=== PATIENT | female | born 1970 ===

== ENCOUNTER 2016-08-19 08:24 | Day surgery (SDC) | payer MEDICAID ==
[2016-08-17 09:23] VITALS: BMI 44.6
[2016-08-19] MEDS ORDERED: Bupivacaine HCl 0.25% PF (10 ml) Inj ONE (11:19)
[2016-08-19] MEDS ORDERED: ceFAZolin IV 2 gm in Dextrose 0 GM/0 ML BAG IVPB ONE (11:20)
[2016-08-19] MEDS ORDERED: Lidocaine 1% Inj (20ml) ONE (11:20)
[2016-08-19] MEDS ORDERED: Midazolam 2 MG/2 ML VIAL ONE (11:40)
[2016-08-19] MEDS ORDERED: Propofol 10 mg/ml Inj (20 ML) ONE (11:41)
[2016-08-19] MEDS ORDERED: ceFAZolin IV 1 gm in Dextrose 1 GM/50 ML BAG IVPB ONE (11:43)
[2016-08-19] MEDS ORDERED: Lactated Ringer's 1,000 ML IV ONE ×2 (11:45→12:50)
[2016-08-19] MEDS ORDERED: ePHEDrine 50 mg/ml Inj ONE (12:27)
[2016-08-19] MEDS ORDERED: Oxycodone/Acetaminophen 5/325 mg Tab PO PRN (12:55)
[2016-08-19] MEDS ORDERED: HYDROmorphone 0.5 mg/0.5 ml ISec IVP PRN (12:57)
[2016-08-19] MEDS ORDERED: Lactated Ringer's 1,000 ML IV SCH (13:00)
--- NOTE | 2016-08-19 14:29 | OP ---
PROCEDURE DATE: 08/19/2016 PREOPERATIVE DIAGNOSIS: Inflammatory mass of the right thigh and right leg. POSTOPERATIVE DIAGNOSIS: Inflammatory mass of the right thigh and right leg. PROCEDURE PERFORMED: Wide and deep excision of inflammatory mass of the right thigh and right leg. SURGEON: Laci Dinero MD ANESTHESIA: General. ESTIMATED BLOOD LOSS: 35 mL. POSTOPERATIVE CONDITION: Stable. INDICATIONS FOR SURGERY: This is a 46-year-old female with 2 inflammatory masses medially on the leg , one measuring 5 and one measuring 6 cm. One was on the thigh and one was on the leg near the knee. She now will undergo wide and deep excision. PROCEDURE: The patient taken to the operating room. General anesthesia administered and the right l eg was prepped and draped. Attention was first turned to the thigh mass. An elliptical incision was made surrounding the mass. It was completely dissected free deep into the fascial layer and removed. Bleeding was controlled using the Bovie. A larger blood vessel was repaired. Wound was irrigated with saline. Generous tissue flaps were raised using the Bovie and a greater than 30 square cm adjac ent tissue transfer closure was performed with multiple layers of heavy Monocryl, subcuticular Monocr yl, and glue. The above was repeated on the mass on the leg. The patient tolerated the procedure we ll, returned to recovery room in stable condition. Laci Dinero MD cc: [id number] TT: 08/19/2016 14:29:43 travon
[2016-08-19 16:08] VITALS: BP 132/84; PULSE 76; RESP 20; TEMP 97.8; O2SAT 98
--- NOTE | 2016-08-20 23:04 | CARD ---
APPROVED REPORT EKG Measurement Heart [id number] <Conclusion> Normal sinus rhythm Normal ECG
== END 2016-08-19 15:50 | disposition home or self-care (01) ==
LOC: C.SDS 08:24
PROVIDERS: ATTEND Surgery
DX: R22.41 Localized swelling, mass and lump, right lower limb (principal)
CPT/HCPCS: 11406; 88307; 93005; 97116; 97161; G8978; G8979; G8980; J0690; J2250; J2704; J3010; J7120

== ENCOUNTER 2016-08-28 11:43 | Inpatient (IN) | payer MEDICAID ==
[2016-08-28 11:44] VITALS: BMI 44.6
[2016-08-28] MEDS ORDERED: Cefepime 1 GM in Sodium Chloride 0.9% 50 ML IVPB STA (12:11)
--- NOTE | 2016-08-28 12:23 | RAD ---
PROCEDURE: CHEST RADIOGRAPH, 1 VIEW HISTORY: PREOP COMPARISON: None available. FINDINGS: LUNGS: Clear. PLEURA: No pneumothorax or pleural fluid seen. CARDIOVASCULAR: Normal. OSSEOUS STRUCTURES: Mild degenerative changes both acromioclavicular joints. VISUALIZED UPPER ABDOMEN: Normal. OTHER FINDINGS: None. IMPRESSION: No acute cardiopulmonary disease.
[2016-08-28 12:29] LABS: BASO % 0.6 % (0.0-2.0); EOS # 0.2 K/uL (0.0-0.7); HEMATOCRIT 40.7 % (34.0-47.0); LYMPH # 1.2 K/uL (1.0-4.3); LYMPH % 17.5 % (20.0-40.0); MEAN CELL VOLUME 87.4 fL (81.0-99.0); MEAN CORPUSCULAR HGB CONC 33.2 g/dL (33.0-37.0); MEAN PLATELET VOLUME 7.6 fL (7.2-11.7); MONO # 0.8 K/uL (0.0-0.8); MONO % 12.4 % (0.0-10.0); RED CELL DISTRIBUTION WIDTH 14.1 % (11.5-14.5); WHITE BLOOD COUNT 6.8 K/uL (4.8-10.8)
[2016-08-28 12:37] LABS: CHLORIDE 101 mmol/L (98-107); SODIUM 138 mmol/L (132-148)
[2016-08-28 12:38] LABS: POTASSIUM 3.9 mmol/L (3.6-5.2)
[2016-08-28 12:40] LABS: ALB/GLOB RATIO 1.1 (1.0-2.1); ALKALINE PHOSPHATASE 83 U/L (38-126); AST/SGOT 17 U/L (14-36); BILIRUBIN,TOTAL 0.8 mg/dL (0.2-1.3); BLOOD UREA NITROGEN 16 mg/dL (7-17); CARBON DIOXIDE 26 mmol/L (22-30); GFR AFRICAN-AMERICAN > 60; GLUCOSE,RANDOM 74 mg/dL (65-105); TOTAL PROTEIN 8.2 g/dL (6.3-8.3)
[2016-08-28 12:41] LABS: ALT/SGPT 23 U/L (9-52); CALCIUM 9.6 mg/dl (8.6-10.4)
--- NOTE | 2016-08-28 12:50 | C.PDOC ---
History Of Present Illness 46-year-old female presents to the emergency department with complaints of redness and pain to right lower leg. Patient is s/p varicose vein removal one week ago by Dr. Dinero. Since then, patient has been experiencing increasing redness and pain with "whitish fluid" coming from the wound. Patient called Dr. Dinero, who instructed her to come to the ED for evaluation. Pt is not currently on any PO antibiotics. She denies falls/injuries, chest pain, shortness of breath, fever. Time Seen by Provider: 08/28/16 11:50 Chief Complaint (Nursing): Abnormal Skin Integrity History Per: Patient History/Exam Limitations: no limitations Onset/Duration Of Symptoms: Days Current Symptoms Are (Timing): Still Present Quality Of Symptoms: Painful, Swollen, Draining Severity: Moderate Past Medical History Reviewed: Historical Data, Nursing Documentation, Vital Signs Vital Signs: Last Vital Signs Temp 98.2 F 09/01/16 15:00 Pulse 77 09/01/16 15:15 Resp 18 09/01/16 15:15 BP 121/68 09/01/16 15:15 Pulse Ox 95 09/01/16 15:15 - Medical History PMH: HTN, Peripheral Edema Surgical History: Appendectomy, Tonsillectomy Other Surgeries: varicose vein surgery - [facility] Procedures DRAINAGE OF R LOW LEG SUBCU/FASCIA, OPEN APPROACH (08/28/16) EXCISION OF R LOW LEG SUBCU/FASCIA, OPEN APPROACH (08/28/16) NAIL REMOVAL (10/15/14) TRANSFER R LOW LEG SUBCU/FASCIA W SKIN, SUBCU, OPEN (08/28/16) Family History: States: No Known Family Hx - Social History Hx Alcohol Use: No Hx Substance Use: No Review Of Systems Except As Marked, All Systems Reviewed And Found Negative. Constitutional: Negative for: Fever, Chills Cardiovascular: Negative for: Chest Pain Respiratory: Negative for: Shortness of Breath Gastrointestinal: Negative for: Nausea, Vomiting, Abdominal Pain, Diarrhea Musculoskeletal: Positive for: Leg Pain Skin: Negative for: Rash Neurological: Negative for: Weakness, Numbness, Headache, Dizziness Physical Exam - Physical Exam Appears: Well, Non-toxic, Other (Mild painful distress ) Skin: Warm, Dry, No Rash, Other (Right medial calf:approx 8cm area of erythema, tenderness and warmth to the proximal surgical wound, (+) small amount clear discharge.) Eye(s): bilateral: Normal Inspection Oral Mucosa: Moist Cardiovascular: Rhythm Regular Respiratory: Normal Breath Sounds, No Rales, No Rhonchi, No Wheezing Gastrointestinal/Abdominal: Normal Exam, Bowel Sounds, Soft, No Tenderness Extremity: Normal ROM, No Pedal Edema, No Deformity Pulses: Left Dorsalis Pedis: Normal, Right Dorsalis Pedis: Normal Neurological/Psych: Oriented x3, Normal Sensation ED Course And Treatment - Laboratory Results Result Diagrams: 09/01/16 07:13 09/01/16 07:13 ECG: Interpreted By Me, Viewed By Me (NSR 86 bpm, normal axis, no acute ST/T wave changes) ECG Interpretation: Normal O2 Sat by Pulse Oximetry: 95 (RA) Pulse Ox Interpretation: Normal - Other Rad CXR X-Ray: Viewed By Me, Read By Radiologist Interpretation: Accession No. : [id number]. Patient Name / ID : EWELINA CHIN / [id number]. Exam Date : 08/28/2016 12:06:03 ( Approved ). Study Comment : Sex / Age : F / 46Y. Creator : Laci Gillis MD. Dictator : Laci Gillis MD. Brim And Crown Presser : Hand Surgeon : Laci Gillis MD. Approver2 : Report Date : 08/28/2016 12:22:13. My Comment : . PROCEDURE: CHEST RADIOGRAPH, 1 VIEW. HISTORY: PREOP. COMPARISON: None available. FINDINGS: LUNGS: Clear. PLEURA: No pneumothorax or pleural fluid seen. CARDIOVASCULAR: Normal. OSSEOUS STRUCTURES: Mild degenerative changes both acromioclavicular joints. VISUALIZED UPPER ABDOMEN: Normal. OTHER FINDINGS: None. IMPRESSION: No acute cardiopulmonary disease. Progress Note: Bloodwork, EKG and CXR ordered and reviewed. Patient given dose of IV Vanomycin, IV Cefepime. Patient to be taken to OR by Dr. Dinero for I& D of abcess/wound later today. - Physician Consult Information Physician Contacted: Laci Dinero Outcome Of Conversation: Spoke with Dr. Dinero, patient to be admitted under Dr. Brooks's service for leg cellulitis/abscess with Dr. Arroyo for ID. Dr. Brooks spoken with and agrees, emergency medical tech notified. Patient is NPO for OR later (approx 5pm). Disposition - Disposition Disposition: HOSPITALIZED Disposition Time: 14:08 Condition: STABLE - Clinical Impression Clinical Impression: Cellulitis of right leg, or - Scribe Statement The provider has reviewed the documentation as recorded by the Scribe Gopi Fritz All medical record entries made by the Scribe were at my direction and personally dictated by me. I have reviewed the chart and agree that the record accurately reflects my personal performance of the history, physical exam, medical decision making, and the department course for this patient. I have also personally directed, reviewed, and agree with the discharge instructions and disposition. Decision To Admit - Pt Status Changed To: Hospital Disposition Of: Inpatient - Admit Certification Admit to Inpatient:: After my assessment, the patient will require hospitalization for at least two midnights. This is because of the severity of symptoms shown, intensity of services needed, and/or the medical risk in this patient being treated as an outpatient. - InPatient: Physician Admission Certification: I certify that this patient requires 2 or more midnights of care for the following reason:: see notes - . Bed Request Type: Regular Admitting Physician: Juanpablo Brooks Jr. Patient Diagnosis: Cellulitis of right leg
[2016-08-28] MEDS ORDERED: Cefepime IV 1 gm in Dextrose 1 GM/50 ML BAG IVPB ONE (13:00)
[2016-08-28] MEDS ORDERED: Dextrose 5%/0.9% NS 1,000 ML IV STA (13:35)
--- NOTE | 2016-08-28 14:20 | CP.PCM.HP ---
History of Present Illness - History of Present Illness History of Present Illness: Medicine Note for Dr. Brooks, CC: right leg pain HPI: 46F with presents to the ED S/P Excision of Varicose Vein of Right Leg POD #9 (08/19/16) with right leg pain and swelling. She stated she noticed redness a few days ago and it was leaking white fluid from the surgical site for the past two days. She also states having increased swelling as well as decreased sensation around site. Last night she reported having increasing pain and throbbing around the site. She did not come to the ED because she had an appointment scheduled with with Dr. Dinero today at his office, during which he told her to come to the ED. Admitted to having difficulty ambulating on the leg, even with the assistance of the crutches. Plan for OR today at 5pm. Denied fever, chills, headache, chest pain, SOB, abdominal pain, n/v/d/c, urinary symptoms. PMHx: Denied PSHx: appendectomy, tonsillectomy, varicose vein removal left leg and right leg , left foot surgery Meds: Denied All: Contrast SHx: Admits to socially drinking alcohol, denied any tobacco or illicit drug use FHx: DM, CAD Present on Admission - Present on Admission Any Indicators Present on Admission: No Past Patient History - Infectious Disease Hx of Infectious Diseases: None - Past Medical History & Family History Past Medical History?: Yes - Past Social History Smoking Status: Never Smoked - CARDIAC Hx Hypertension: Yes Hx Peripheral Edema: Yes - PULMONARY Hx Respiratory Disorders: Yes Hx Respiratory Tract Infection: Yes (APR 2016) - NEUROLOGICAL Hx Neurological Disorder: No - HEENT Hx HEENT Problems: No - RENAL Hx Chronic Kidney Disease: No - ENDOCRINE/METABOLIC Hx Endocrine Disorders: No - HEMATOLOGICAL/ONCOLOGICAL Hx Blood Disorders: No - INTEGUMENTARY Hx Dermatological Problems: Yes Other/Comment: varicose vein surgery. Redness right knee and leg - MUSCULOSKELETAL/RHEUMATOLOGICAL Hx Musculoskeletal Disorders: No - GASTROINTESTINAL Hx Gastrointestinal Disorders: No - GENITOURINARY/GYNECOLOGICAL Hx Genitourinary Disorders: Yes (PELVIC PAIN) - PSYCHIATRIC Hx Substance Use: No - SURGICAL HISTORY Hx Appendectomy: Yes Hx Tonsillectomy: Yes - ANESTHESIA Hx Anesthesia: Yes Hx Anesthesia Reactions: No Hx Malignant Hyperthermia: No Meds Allergies/Adverse Reactions: Allergies Allergy/AdvReac Type Severity Reaction Status Date / Time contrast dye Allergy ITCHING Uncoded 08/28/16 11:58 Physical Exam - Constitutional Appears: No Acute Distress - Head Exam Head Exam: NORMAL INSPECTION, NORMOCEPHALIC - Respiratory Exam Respiratory Exam: Clear to Auscultation Bilateral, NORMAL BREATHING PATTERN. absent: Wheezes - Cardiovascular Exam Cardiovascular Exam: REGULAR RHYTHM, RRR, +S1, +S2 - GI/Abdominal Exam GI & Abdominal Exam: Normal Bowel Sounds, Soft. absent: Distended - Extremities Exam Extremities exam: Positive for: pedal edema, tenderness Additional comments: Right leg medial aspect, erythematous, oozing yellow drainage. - Neurological Exam Neurological exam: Alert, Oriented x3 - Skin Skin Exam: Dry, Intact, Normal Color, Warm Results - Vital Signs Recent Vital Signs: Last Vital Signs Temp 98.2 F 08/28/16 14:05 Pulse 73 08/28/16 14:05 Resp 18 08/28/16 14:05 BP 109/68 08/28/16 14:05 Pulse Ox 95 08/28/16 14:14 - Labs Result Diagrams: 08/28/16 12:18 08/28/16 12:18 Labs: Laboratory Results - last 24 hr 08/28/16 08/28/16 08/28/16 12:18 12:18 12:18 WBC 6.8 RBC 4.66 Hgb 13.5 Hct 40.7 MCV 87.4 MCH 29.0 MCHC 33.2 RDW 14.1 Plt Count 291 MPV 7.6 Neut % (Auto) 66.5 Lymph % (Auto) 17.5 L [place] % (Auto) 12.4 H Eos % (Auto) 3.0 Baso % (Auto) 0.6 Neut # 4.5 Lymph # 1.2 [place] # 0.8 Eos # 0.2 Baso # 0.0 PT 11.4 INR 1.0 APTT 30 Sodium 138 Potassium 3.9 Chloride 101 Carbon Dioxide 26 Anion Gap 15 BUN 16 Creatinine 0.7 Est GFR ( Amer) > 60 Est GFR (Non-Af Amer) > 60 POC Glucose (mg/dL) Random Glucose 74 Calcium 9.6 Total Bilirubin 0.8 AST 17 ALT 23 Alkaline Phosphatase 83 Total Protein 8.2 Albumin 4.2 Globulin 4.0 H Albumin/Globulin Ratio 1.1 Blood Type Antibody Screen 08/28/16 08/28/16 12:18 13:49 WBC RBC Hgb Hct MCV MCH MCHC RDW Plt Count MPV Neut % (Auto) Lymph % (Auto) [place] % (Auto) Eos % (Auto) Baso % (Auto) Neut # Lymph # [place] # Eos # Baso # PT INR APTT Sodium Potassium Chloride Carbon Dioxide Anion Gap BUN Creatinine Est GFR ( Amer) Est GFR (Non-Af Amer) POC Glucose (mg/dL) 76 Random Glucose Calcium Total Bilirubin AST ALT Alkaline Phosphatase Total Protein Albumin Globulin Albumin/Globulin Ratio Blood Type O POSITIVE Antibody Screen Negative Assessment & Plan - Assessment and Plan (Free Text) Plan: Right Leg Cellulitis * S/P Excision of Varicose Vein of Right Leg POD #9 (08/19/16) * Afebrile, vitals stable, no leukocytosis * Patient kept NPO, Plan for OR today with Dr. Dinero at 5pm * Dr. Arroyo- consulted-help appreciated * Patient started on Vancomycin and Zosyn * Blood cultures sent Prophylactic Measure * GI PPX: Protonix 40mg PO daily * DVT PPX: SCDs contraindicated, Heparin 5000 SC Q12 * Regular diet after surgery DW Geraldo Brown DO, PGY-1
[2016-08-28] MEDS ORDERED: Piperacillin/Tazobact 3.375 GM in Sodium Chloride 100 ML IVPB SCH ×2 (15:30→20:00)
[2016-08-28] MEDS ORDERED: Piperacillin/Tazobact 3.375 gm 100 ML IVPB ONE (15:37)
--- NOTE | 2016-08-28 17:38 | CP.PCM.CON ---
History of Present Illness - History of Present Illness History of Present Illness: 46F with presents to the ED S/P Excision of Varicose Vein of Right Leg POD #9 () with right leg pain and swelling. She stated she noticed redness a few days ago and it was leaking white fluid from the surgical site for the past two days. She also states having increased swelling as well as decreased sensation around site. Last night she reported having increasing pain and throbbing around the site. She did not come to the ED because she had an appointment scheduled with with Dr. Dinero today at his office, during which he told her to come to the ED. Admitted to having difficulty ambulating on the leg, even with the assistance of the crutches. Plan for OR today at 5pm. Denied fever, chills, headache, chest pain, SOB, abdominal pain, n/v/d/c, urinary symptoms. PMHx: Denied PSHx: appendectomy, tonsillectomy, varicose vein removal left leg and right leg , left foot surgery Meds: Denied All: Contrast SHx: Admits to socially drinking alcohol, denied any tobacco or illicit drug use FHx: DM, CAD Past Patient History - Infectious Disease Hx of Infectious Diseases: None - Past Medical History & Family History Past Medical History?: Yes - Past Social History Smoking Status: Never Smoked - CARDIAC Hx Hypertension: Yes Hx Peripheral Edema: Yes - PULMONARY Hx Respiratory Disorders: Yes Hx Respiratory Tract Infection: Yes (APR 2016) - NEUROLOGICAL Hx Neurological Disorder: No - HEENT Hx HEENT Problems: No - RENAL Hx Chronic Kidney Disease: No - ENDOCRINE/METABOLIC Hx Endocrine Disorders: No - HEMATOLOGICAL/ONCOLOGICAL Hx Blood Disorders: No - INTEGUMENTARY Hx Dermatological Problems: Yes Other/Comment: varicose vein surgery. Redness right knee and leg - MUSCULOSKELETAL/RHEUMATOLOGICAL Hx Musculoskeletal Disorders: No - GASTROINTESTINAL Hx Gastrointestinal Disorders: No - GENITOURINARY/GYNECOLOGICAL Hx Genitourinary Disorders: Yes (PELVIC PAIN) - PSYCHIATRIC Hx Substance Use: No - SURGICAL HISTORY Hx Appendectomy: Yes Hx Tonsillectomy: Yes - ANESTHESIA Hx Anesthesia: Yes Hx Anesthesia Reactions: No Hx Malignant Hyperthermia: No Meds Allergies/Adverse Reactions: Allergies Allergy/AdvReac Type Severity Reaction Status Date / Time contrast dye Allergy ITCHING Uncoded 08/28/16 11:58 - Medications Medications: Current Medications Heparin Sodium (Porcine) (Heparin) 5,000 units SC Q12 [facility] Dextrose/Sodium Chloride (Dextrose 5%/0.9% Ns 1000 Ml) 1,000 mls @ 80 mls/hr IV [id number] STA Stop: 08/29/16 02:04 Last Admin: 08/28/16 13:40 Dose: 80 mls/hr Vancomycin/Sodium Chloride (Vancocin) 1 gm in 200 mls @ 133.333 mls/hr IVPB Q24H [facility] Stop: 09/03/16 10:01 Piperacillin Sod/Tazobactam (Sod 3.375 gm/ Sodium Chloride) 100 mls @ 200 mls/ hr IVPB Q8H [facility] Ondansetron HCl (Zofran Inj) 4 mg IVP Q6H PRN PRN Reason: Nausea/Vomiting Pantoprazole Sodium (Protonix Ec Tab) 40 mg PO DAILY [facility] Pneumococcal Polyvalent Vaccine (Pneumovax 23 Vaccine) 0.5 ml IM .ONCE ONE Stop: 08/30/16 10:01 Results - Vital Signs Recent Vital Signs: Last Vital Signs Temp 98.8 F 08/28/16 16:33 Pulse 85 08/28/16 16:33 Resp 20 08/28/16 16:33 BP 149/79 08/28/16 16:33 Pulse Ox 93 L 08/28/16 16:33 - Labs Result Diagrams: 08/28/16 12:18 08/28/16 12:18 Labs: Laboratory Results - last 24 hr 08/28/16 15:30 POC Glucose (mg/dL) 97
[2016-08-28] MEDS ORDERED: Lactated Ringer's 1,000 ML IV ONE (20:50)
[2016-08-28] MEDS ORDERED: Propofol 10 mg/ml Inj (20 ML) ONE (20:53)
[2016-08-28] MEDS ORDERED: Midazolam 2 MG/2 ML VIAL ONE (20:53)
[2016-08-28] MEDS ORDERED: Lidocaine Hydrochloride 5 ML INJ ONE (20:54)
[2016-08-28] MEDS ORDERED: HYDROmorphone 0.5 mg/0.5 ml ISec IVP PRN (21:08)
--- NOTE | 2016-08-28 21:43 | OP ---
PROCEDURE DATE: 08/28/2016 PREOPERATIVE DIAGNOSIS: Right leg cellulitis with abscess. POSTOPERATIVE DIAGNOSIS: Right leg cellulitis with abscess. PROCEDURE PERFORMED: Incision and drainage of right leg abscess with excision of infected mass, repa ir of a blood vessel and partial tissue transfer closure. SURGEON: Laci iDnero MD. ANESTHESIA: General. ESTIMATED BLOOD LOSS: 30 mL. POSTOPERATIVE CONDITION: Stable. INDICATIONS FOR SURGERY: This is a 46-year-old female who presents with an infection of the leg afte r undergoing excision of an inflamed vein several weeks ago. She developed cellulitis, abscess and n ow taken to the operating room. GROSS FINDINGS: There was a phlegmon within the wound, which was excised. Pus was drained and cultu red. PROCEDURE: The patient taken to the operating room. General anesthesia was administered and the rig ht leg and knee area was prepped and draped. The wound was cleansed of all the remaining glue and th en reopened using Metzenbaum scissors, an infected phlegmon was removed along with some pus which was cultured. It was aggressively debrided and irrigated until clean tissue was established, partial ti ssue transfer closure was performed and the central portion of the wound was packed open with wet beverly ine gauze. The patient tolerated procedure well, returned to recovery room in stable condition. Laci Dinero MD cc: [id number] TT: 08/28/2016 21:42:02 jn
[2016-08-29] MEDS ORDERED: Piperacillin/Tazobact 3.375 GM in Sodium Chloride 100 ML IVPB SCH
[2016-08-29] MEDS: Piperacill/Tazo 3.375gm in Dex 3.375 GM/50 ML BAG IVPB SCH ×3 (00:23→16:27)
[2016-08-29 07:38] LABS: BASO # 0.1 K/uL (0.0-0.2); BASO % 1.1 % (0.0-2.0); EOS # 0.2 K/uL (0.0-0.7); EOS % 3.4 % (0.0-4.0); HEMATOCRIT 35.8 % (34.0-47.0); LYMPH # 0.8 K/uL (1.0-4.3); LYMPH % 13.1 % (20.0-40.0); MEAN CORPUSCULAR HEMOGLOBIN 29.4 pg (27.0-31.0); MEAN CORPUSCULAR HGB CONC 33.8 g/dL (33.0-37.0); MEAN PLATELET VOLUME 7.6 fL (7.2-11.7); MONO # 0.8 K/uL (0.0-0.8); MONO % 13.8 % (0.0-10.0); NRBC % 0.2 % (0.0-2.0); RED CELL DISTRIBUTION WIDTH 14.5 % (11.5-14.5); WHITE BLOOD COUNT 5.9 K/uL (4.8-10.8)
[2016-08-29 07:52] LABS: CHLORIDE 102 mmol/L (98-107)
[2016-08-29 07:53] LABS: POTASSIUM 4.2 mmol/L (3.6-5.2); SODIUM 138 mmol/L (132-148)
[2016-08-29 07:56] LABS: ALKALINE PHOSPHATASE 68 U/L (38-126); ALT/SGPT 19 U/L (9-52); AST/SGOT 15 U/L (14-36); BILIRUBIN,TOTAL 0.7 mg/dL (0.2-1.3); BLOOD UREA NITROGEN 14 mg/dL (7-17); CALCIUM 8.3 mg/dl (8.6-10.4); CARBON DIOXIDE 27 mmol/L (22-30); GFR AFRICAN-AMERICAN > 60; GLUCOSE,RANDOM 115 mg/dL (65-105); TOTAL PROTEIN 6.8 g/dL (6.3-8.3)
[2016-08-29] MEDS: Pantoprazole 40 mg EC Tab PO SCH (10:22)
[2016-08-29] MEDS: Vancomycin 1 gm/NS 200 ml 1 GM/200 ML BAG IVPB SCH (10:23)
--- NOTE | 2016-08-29 13:48 | CP.PCM.PN ---
Subjective - Date & Time of Evaluation Date of Evaluation: 08/29/16 Time of Evaluation: 12:00 - Subjective Subjective: Medicine Note for Dr. Brooks, Patient was seen and examined at bedside. Patient reports her pain is well controlled. Denied fever, chills, headache, chest pain, abdominal pain, n/v/d/c , or urinary symptoms. Objective - Vital Signs/Intake and Output Vital Signs (last 24 hours): Temp Pulse Resp BP Pulse Ox 97.9 F 82 20 116/69 95 08/29/16 08:12 08/29/16 08:12 08/29/16 08:12 08/29/16 08:12 08/29/16 08:12 - Medications Medications: Current Medications Heparin Sodium (Porcine) (Heparin) 5,000 units SC Q12 [facility] Last Admin: 08/29/16 10:22 Dose: 5,000 units Hydromorphone HCl (Dilaudid) 0.5 mg IVP Q15M PRN PRN Reason: Pain, severe (8-10) Vancomycin/Sodium Chloride (Vancocin) 1 gm in 200 mls @ 133.333 mls/hr IVPB Q24H [facility] Stop: 09/03/16 10:01 Last Admin: 08/29/16 10:23 Dose: 133.333 mls/hr Piperacillin Sod/Tazobactam Sod (Zosyn 3.375 Gm Iv Premix) 3.375 gm in 50 mls @ 100 mls/hr IVPB Q8H [facility] Last Admin: 08/29/16 08:26 Dose: 100 mls/hr Ondansetron HCl (Zofran Inj) 4 mg IVP Q6H PRN PRN Reason: Nausea/Vomiting Pantoprazole Sodium (Protonix Ec Tab) 40 mg PO DAILY [facility] Last Admin: 08/29/16 10:22 Dose: 40 mg Pneumococcal Polyvalent Vaccine (Pneumovax 23 Vaccine) 0.5 ml IM .ONCE ONE Stop: 08/30/16 10:01 Tramadol HCl (Ultram) 50 mg PO TID PRN PRN Reason: pain - Labs Labs: 08/29/16 07:26 08/29/16 07:26 PT 11.4 SECONDS (9.7-12.2) 08/28/16 12:18 INR 1.0 08/28/16 12:18 APTT 30 SECONDS (21-34) 08/28/16 12:18 - Constitutional Appears: No Acute Distress - Head Exam Head Exam: NORMAL INSPECTION, NORMOCEPHALIC - ENT Exam ENT Exam: Mucous Membranes Moist - Respiratory Exam Respiratory Exam: Clear to Ausculation Bilateral, NORMAL BREATHING PATTERN. absent: Wheezes - Cardiovascular Exam Cardiovascular Exam: REGULAR RHYTHM, RRR, +S1, +S2 - GI/Abdominal Exam GI & Abdominal Exam: Soft, Normal Bowel Sounds. absent: Distended, Tenderness - Extremities Exam Extremities Exam: Normal Inspection Additional comments: Medial aspect of right leg dressing C/D/I - Neurological Exam Neurological Exam: Alert, Awake, Oriented x3 - Skin Skin Exam: Dry, Intact, Normal Color, Warm Assessment and Plan - Assessment and Plan (Free Text) Plan: Right Leg Cellulitis * S/P Excision of Varicose Vein of Right Leg (08/19/16) * Afebrile, vitals stable, no leukocytosis * S/P I&D of right leg abscess POD #1 (08/28/16) * Patient started on Vancomycin and Zosyn (08/28/16) * Ultram and dilaudid PRN for pain * Dr. Arroyo- consulted-help appreciated * Blood cultures and wound cultures sent Prophylactic Measure * GI PPX: Protonix 40mg PO daily * DVT PPX: SCDs contraindicated, Heparin 5000 SC Q12 * Regular diet after surgery DW Geraldo Brown DO, PGY-1
[2016-08-30] MEDS: Piperacill/Tazo 3.375gm in Dex 3.375 GM/50 ML BAG IVPB SCH ×2 (00:02→08:06)
--- NOTE | 2016-08-30 02:25 | CP.PCM.PN ---
Subjective - Date & Time of Evaluation Date of Evaluation: 08/30/16 Time of Evaluation: 02:10 - Subjective Subjective: Medicine Note for Dr. Brooks, Patient was seen and examined at bedside. Patient reports pain in the back of her knee. Denied fever, chills, headache, chest pain, abdominal pain, n/v/d/c, or urinary symptoms. She states she has not had a BM since she came to the hospital. She is tolerating her diet and eating well. Objective - Vital Signs/Intake and Output Vital Signs (last 24 hours): Temp Pulse Resp BP Pulse Ox 98.1 F 79 20 108/69 98 08/30/16 01:27 08/30/16 01:27 08/30/16 01:27 08/30/16 01:27 08/30/16 01:27 Intake and Output: 08/29/16 08/30/16 18:59 06:59 Intake Total 700 Balance 700 - Medications Medications: Current Medications Heparin Sodium (Porcine) (Heparin) 5,000 units SC Q12 [facility] Last Admin: 08/29/16 21:32 Dose: 5,000 units Hydromorphone HCl (Dilaudid) 0.5 mg IVP Q15M PRN PRN Reason: Pain, severe (8-10) Last Admin: 08/29/16 22:20 Dose: 0.5 mg Vancomycin/Sodium Chloride (Vancocin) 1 gm in 200 mls @ 133.333 mls/hr IVPB Q24H [facility] Stop: 09/03/16 10:01 Last Admin: 08/29/16 10:23 Dose: 133.333 mls/hr Piperacillin Sod/Tazobactam Sod (Zosyn 3.375 Gm Iv Premix) 3.375 gm in 50 mls @ 100 mls/hr IVPB Q8H [facility] Last Admin: 08/30/16 00:02 Dose: 100 mls/hr Ondansetron HCl (Zofran Inj) 4 mg IVP Q6H PRN PRN Reason: Nausea/Vomiting Pantoprazole Sodium (Protonix Ec Tab) 40 mg PO DAILY [facility] Last Admin: 08/29/16 10:22 Dose: 40 mg Pneumococcal Polyvalent Vaccine (Pneumovax 23 Vaccine) 0.5 ml IM .ONCE ONE Stop: 08/30/16 10:01 Tramadol HCl (Ultram) 50 mg PO TID PRN PRN Reason: pain Last Admin: 08/29/16 19:19 Dose: 50 mg - Labs Labs: 08/29/16 07:26 08/29/16 07:26 PT 11.4 SECONDS (9.7-12.2) 08/28/16 12:18 INR 1.0 08/28/16 12:18 APTT 30 SECONDS (21-34) 08/28/16 12:18 - Constitutional Appears: Non-toxic, No Acute Distress - Head Exam Head Exam: NORMAL INSPECTION - Eye Exam Eye Exam: EOMI Pupil Exam: NORMAL ACCOMODATION - ENT Exam ENT Exam: Mucous Membranes Moist - Respiratory Exam Respiratory Exam: Clear to Ausculation Bilateral, NORMAL BREATHING PATTERN. absent: Accessory Muscle Use, Rales, Rhonchi, Wheezes, Respiratory Distress - Cardiovascular Exam Cardiovascular Exam: REGULAR RHYTHM, +S1, +S2 - GI/Abdominal Exam GI & Abdominal Exam: Soft, Normal Bowel Sounds. absent: Distended, Firm, Guarding, Tenderness - Extremities Exam Extremities Exam: Normal Inspection. absent: Calf Tenderness, Pedal Edema Additional comments: Medial aspect of right leg dressing C/D/I. Good pulses, warm, able to move toes and ext well, sensation in tact - Back Exam Back Exam: NORMAL INSPECTION. absent: CVA tenderness (L), CVA tenderness (R), paraspinal tenderness - Neurological Exam Neurological Exam: Alert, Awake, CN II-XII Intact, Oriented x3 - Psychiatric Exam Psychiatric exam: Normal Affect, Normal Mood - Skin Skin Exam: Dry, Normal Color, Warm Assessment and Plan - Assessment and Plan (Free Text) Assessment: Right Leg Cellulitis * S/P Excision of Varicose Vein of Right Leg (08/19/16) * Afebrile, vitals stable, no leukocytosis * S/P I&D of right leg abscess POD #2 (08/28/16) - Patient to return to OR on Wednesday * Ultram and dilaudid PRN for pain * Dr. Arroyo- consulted-help appreciated * Blood cultures and wound cultures sent * Vanc 1gm Q24 hours IVPB - started 6/2 * Zosyn 3.375 gm IVPB Q8 hours - started 6/2 Prophylactic Measure * GI PPX: Protonix 40mg PO daily * DVT PPX: SCDs contraindicated, Heparin 5000 SC Q12 * Regular diet after surgery Management per Dr. Brooks
[2016-08-30 08:10] LABS: BASO # 0.1 K/uL (0.0-0.2); BASO % 1.3 % (0.0-2.0); EOS # 0.2 K/uL (0.0-0.7); EOS % 4.2 % (0.0-4.0); HEMATOCRIT 38.6 % (34.0-47.0); LYMPH # 0.7 K/uL (1.0-4.3); LYMPH % 12.6 % (20.0-40.0); MEAN CELL VOLUME 87.2 fL (81.0-99.0); MEAN CORPUSCULAR HEMOGLOBIN 29.3 pg (27.0-31.0); MEAN CORPUSCULAR HGB CONC 33.5 g/dL (33.0-37.0); MEAN PLATELET VOLUME 7.6 fL (7.2-11.7); MONO # 0.6 K/uL (0.0-0.8); MONO % 10.4 % (0.0-10.0); NRBC % 0.1 % (0.0-2.0); RED CELL DISTRIBUTION WIDTH 14.2 % (11.5-14.5); WHITE BLOOD COUNT 5.7 K/uL (4.8-10.8)
[2016-08-30 08:18] LABS: CHLORIDE 101 mmol/L (98-107); SODIUM 137 mmol/L (132-148)
[2016-08-30 08:20] LABS: AST/SGOT 15 U/L (14-36); BILIRUBIN,TOTAL 0.8 mg/dL (0.2-1.3); CARBON DIOXIDE 27 mmol/L (22-30); GFR AFRICAN-AMERICAN > 60
[2016-08-30 08:21] LABS: ALB/GLOB RATIO 1.1 (1.0-2.1); ALKALINE PHOSPHATASE 75 U/L (38-126); ALT/SGPT 19 U/L (9-52); BLOOD UREA NITROGEN 12 mg/dL (7-17); GLUCOSE,RANDOM 116 mg/dL (65-105); TOTAL PROTEIN 7.2 g/dL (6.3-8.3)
[2016-08-30 08:22] LABS: CALCIUM 8.7 mg/dl (8.6-10.4)
[2016-08-30] MEDS ORDERED: Pneumococcal 23-Valent Vaccine IM ONE ×2 (10:00→12:15)
[2016-08-30] MEDS: Pantoprazole 40 mg EC Tab PO SCH (12:04)
[2016-08-30] MEDS: Vancomycin 1 gm/NS 200 ml 1 GM/200 ML BAG IVPB SCH (12:05)
[2016-08-30] MEDS ORDERED: Pneumoc 13 Val Conjugate Vaccine Inj IM ONE (12:15)
--- NOTE | 2016-08-30 16:18 | CP.PCM.PN ---
Subjective - Date & Time of Evaluation Date of Evaluation: 08/30/16 Time of Evaluation: 08:00 - Subjective Subjective: right leg cultures show proteus on ancef Objective - Vital Signs/Intake and Output Vital Signs (last 24 hours): Temp Pulse Resp BP Pulse Ox 98.6 F 83 20 136/78 95 08/30/16 08:40 08/30/16 08:40 08/30/16 08:40 08/30/16 08:40 08/30/16 08:40 Intake and Output: 08/30/16 08/30/16 06:59 18:59 Intake Total 200 Balance 200 - Medications Medications: Current Medications Heparin Sodium (Porcine) (Heparin) 5,000 units SC Q12 [facility] Last Admin: 08/30/16 12:04 Dose: 5,000 units Hydromorphone HCl (Dilaudid) 0.5 mg IVP Q15M PRN PRN Reason: Pain, severe (8-10) Last Admin: 08/29/16 22:20 Dose: 0.5 mg Cefazolin Sodium 1,000 mg/ (Sodium Chloride) 100 mls @ 100 mls/hr IVPB Q8H [facility] Ondansetron HCl (Zofran Inj) 4 mg IVP Q6H PRN PRN Reason: Nausea/Vomiting Pantoprazole Sodium (Protonix Ec Tab) 40 mg PO DAILY [facility] Last Admin: 08/30/16 12:04 Dose: 40 mg Tramadol HCl (Ultram) 50 mg PO TID PRN PRN Reason: pain Last Admin: 08/29/16 19:19 Dose: 50 mg - Labs Labs: 08/30/16 07:56 08/30/16 07:56 PT 11.4 SECONDS (9.7-12.2) 08/28/16 12:18 INR 1.0 08/28/16 12:18 APTT 30 SECONDS (21-34) 08/28/16 12:18 - Constitutional Appears: Non-toxic, Chronically Ill - Head Exam Head Exam: NORMOCEPHALIC - Eye Exam Eye Exam: absent: Scleral icterus - ENT Exam ENT Exam: Mucous Membranes Dry - Neck Exam Neck Exam: absent: Lymphadenopathy - Respiratory Exam Respiratory Exam: Decreased Breath Sounds - Cardiovascular Exam Cardiovascular Exam: REGULAR RHYTHM, +S1, +S2 - GI/Abdominal Exam GI & Abdominal Exam: Distended, Soft - Rectal Exam Rectal Exam: Deferred - Exam Exam: NORMAL INSPECTION - Extremities Exam Extremities Exam: Pedal Edema. absent: Calf Tenderness - Back Exam Back Exam: absent: CVA tenderness (L), CVA tenderness (R) - Neurological Exam Neurological Exam: Alert, Awake, Oriented x3 - Psychiatric Exam Psychiatric exam: Normal Mood - Skin Skin Exam: Dry Assessment and Plan - Assessment and Plan (Free Text) Assessment: cont iv rx for leg ulcer/ cellulitis
[2016-08-31 07:11] LABS: BASO # 0.1 K/uL (0.0-0.2); BASO % 1.1 % (0.0-2.0); EOS # 0.2 K/uL (0.0-0.7); EOS % 3.6 % (0.0-4.0); HEMATOCRIT 39.3 % (34.0-47.0); LYMPH # 0.9 K/uL (1.0-4.3); LYMPH % 13.1 % (20.0-40.0); MEAN CELL VOLUME 87.1 fL (81.0-99.0); MEAN CORPUSCULAR HEMOGLOBIN 29.2 pg (27.0-31.0); MEAN CORPUSCULAR HGB CONC 33.5 g/dL (33.0-37.0); MEAN PLATELET VOLUME 7.5 fL (7.2-11.7); MONO # 0.6 K/uL (0.0-0.8); NRBC % 0.1 % (0.0-2.0); RED CELL DISTRIBUTION WIDTH 14.2 % (11.5-14.5); WHITE BLOOD COUNT 6.7 K/uL (4.8-10.8)
[2016-08-31 07:53] LABS: CHLORIDE 101 mmol/L (98-107); POTASSIUM 3.9 mmol/L (3.6-5.2); SODIUM 137 mmol/L (132-148)
[2016-08-31 07:56] LABS: ALKALINE PHOSPHATASE 78 U/L (38-126); ALT/SGPT 15 U/L (9-52); AST/SGOT 17 U/L (14-36); BILIRUBIN,TOTAL 0.8 mg/dL (0.2-1.3); BLOOD UREA NITROGEN 11 mg/dL (7-17); CARBON DIOXIDE 27 mmol/L (22-30); GFR AFRICAN-AMERICAN > 60; GLUCOSE,RANDOM 118 mg/dL (65-105); TOTAL PROTEIN 7.5 g/dL (6.3-8.3)
[2016-08-31 07:57] LABS: CALCIUM 8.6 mg/dl (8.6-10.4)
--- NOTE | 2016-08-31 10:09 | CP.PCM.PN ---
Subjective - Date & Time of Evaluation Date of Evaluation: 08/31/16 Time of Evaluation: 10:07 - Subjective Subjective: PGY-[address] Brooks Pt seen and examined at bedside. Pt is NPO for repeat I& D with Dr. Dinero today. Pt states her pain is well-controlled, and has not needed pain meds the last two days. Denied fever, chills, headache, chest pain, abdominal pain, n/v/d /c, or urinary symptoms. Objective - Vital Signs/Intake and Output Vital Signs (last 24 hours): Temp Pulse Resp BP Pulse Ox 98.3 F 81 20 112/76 96 08/31/16 07:40 08/31/16 07:40 08/31/16 07:40 08/31/16 07:40 08/31/16 07:40 Intake and Output: 08/31/16 08/31/16 06:59 18:59 Intake Total 100 Balance 100 - Medications Medications: Current Medications Heparin Sodium (Porcine) (Heparin) 5,000 units SC Q12 [facility] Last Admin: 08/30/16 21:38 Dose: 5,000 units Hydromorphone HCl (Dilaudid) 0.5 mg IVP Q15M PRN PRN Reason: Pain, severe (8-10) Last Admin: 08/29/16 22:20 Dose: 0.5 mg Cefazolin Sodium 1,000 mg/ (Sodium Chloride) 100 mls @ 100 mls/hr IVPB Q8H [facility] Last Admin: 08/31/16 07:55 Dose: 100 mls/hr Ondansetron HCl (Zofran Inj) 4 mg IVP Q6H PRN PRN Reason: Nausea/Vomiting Pantoprazole Sodium (Protonix Ec Tab) 40 mg PO DAILY [facility] Last Admin: 08/30/16 12:04 Dose: 40 mg Tramadol HCl (Ultram) 50 mg PO TID PRN PRN Reason: pain Last Admin: 08/29/16 19:19 Dose: 50 mg - Labs Labs: 08/31/16 07:01 08/31/16 07:01 PT 11.4 SECONDS (9.7-12.2) 08/28/16 12:18 INR 1.0 08/28/16 12:18 APTT 30 SECONDS (21-34) 08/28/16 12:18 - Additional Findings Additional findings: - Constitutional Appears: Non-toxic, No Acute Distress - Head Exam Head Exam: NORMAL INSPECTION - Eye Exam Eye Exam: EOMI Pupil Exam: NORMAL ACCOMODATION - ENT Exam ENT Exam: Mucous Membranes Moist - Respiratory Exam Respiratory Exam: Clear to Ausculation Bilateral, NORMAL BREATHING PATTERN. absent: Accessory Muscle Use, Rales, Rhonchi, Wheezes, Respiratory Distress - Cardiovascular Exam Cardiovascular Exam: REGULAR RHYTHM, +S1, +S2 - GI/Abdominal Exam GI & Abdominal Exam: Soft, Normal Bowel Sounds. absent: Distended, Firm, Guarding, Tenderness - Extremities Exam Extremities Exam: Normal Inspection. absent: Calf Tenderness, Pedal Edema Additional comments: Medial aspect of right leg dressing C/D/I. Good pulses, warm, able to move toes and ext well, sensation in tact - Back Exam Back Exam: NORMAL INSPECTION. absent: CVA tenderness (L), CVA tenderness (R), paraspinal tenderness - Neurological Exam Neurological Exam: Alert, Awake, CN II-XII Intact, Oriented x3 - Psychiatric Exam Psychiatric exam: Normal Affect, Normal Mood - Skin Skin Exam: Dry, Normal Color, Warm Assessment and Plan - Assessment and Plan (Free Text) Plan: Right Leg Cellulitis * Patient for repeat I&D with Dr. Dinero today * S/P Excision of Varicose Vein of Right Leg (08/19/16) * Afebrile, vitals stable, no leukocytosis * S/P I&D of right leg abscess POD #3 (08/28/16) * Ultram and dilaudid PRN for pain * Dr. Arroyo- consulted-help appreciated * Blood cultures and wound cultures sent * Vanc 1gm Q24 hours IVPB - started 6/2 * Zosyn 3.375 gm IVPB Q8 hours - started 6/2 Prophylactic Measure * GI PPX: Protonix 40mg PO daily * DVT PPX: SCDs contraindicated, Heparin 5000 SC Q12 - held for surgery today * NPO for surgery today Management per Dr. Todd Lowe, PGY-1
[2016-08-31] MEDS: Pantoprazole 40 mg EC Tab PO SCH (10:49)
--- NOTE | 2016-08-31 13:09 | CARD ---
APPROVED REPORT EKG Measurement Heart [id number] IN [id number] <Conclusion> Normal sinus rhythm Normal ECG
[2016-08-31] MEDS ORDERED: Lactated Ringer's 1,000 ML IV ONE ×2 (16:50→17:38)
[2016-08-31] MEDS ORDERED: Lidocaine 1% Inj (20ml) ONE (16:53)
[2016-08-31] MEDS ORDERED: Bupivacaine HCl 0.25% PF (10 ml) Inj ONE (16:54)
[2016-08-31] MEDS ORDERED: Midazolam 2 MG/2 ML VIAL ONE (16:55)
[2016-08-31] MEDS ORDERED: Propofol 10 mg/ml Inj (20 ML) ONE (16:55)
[2016-08-31] MEDS ORDERED: HYDROmorphone 0.5 mg/0.5 ml ISec IVP PRN (17:47)
[2016-08-31] MEDS: Lactated Ringer's 1,000 ML IV SCH (18:37)
--- NOTE | 2016-08-31 18:46 | OP ---
PROCEDURE DATE: 08/31/2016 PREOPERATIVE DIAGNOSIS: Open infected wound of the right knee and leg. POSTOPERATIVE DIAGNOSIS: Open infected wound of the right knee and leg. PROCEDURE PERFORMED: Re-drainage of right knee collection with debridement, pulse irrigation, repair of blood vessel and partial tissue transfer closure. SURGEON: Laci Dinero MD. ANESTHESIA: General. ESTIMATED BLOOD LOSS: 20 mL. POSTOPERATIVE CONDITION: Stable. INDICATIONS FOR SURGERY: This 46-year-old female with severe wound infection of the right leg with a large wound. The patient is obese and is in need of operative treatment of the wound infection and necrosis. She is taken back to the OR today for change of packing under sedation with a possible brandon sure. PROCEDURE: The patient taken back to the operating room. IV sedation was administered. The previou s packing was removed and the right knee and leg and thigh area were prepped and draped. The wound w as again aggressively debrided. Bleeding was controlled using the Bovie. Larger blood vessels were repaired and another collection was drained and cultured. The wound was pulse irrigated with saline and Kantrex solution. A partial tissue transfer closure was performed at the periphery. The central portion of the wound was packed open with wet saline gauze. The patient tolerated procedure well, r eturned to recovery room in stable condition. Laci Dinero MD cc: [id number] TT: 08/31/2016 18:45:15 jn
[2016-09-01 07:24] LABS: EOS # 0.2 K/uL (0.0-0.7); EOS % 3.6 % (0.0-4.0); HEMATOCRIT 39.2 % (34.0-47.0); LYMPH # 0.9 K/uL (1.0-4.3); LYMPH % 16.6 % (20.0-40.0); MEAN CELL VOLUME 87.1 fL (81.0-99.0); MEAN CORPUSCULAR HEMOGLOBIN 29.3 pg (27.0-31.0); MEAN CORPUSCULAR HGB CONC 33.6 g/dL (33.0-37.0); MEAN PLATELET VOLUME 7.4 fL (7.2-11.7); MONO # 0.5 K/uL (0.0-0.8); MONO % 10.2 % (0.0-10.0); RED CELL DISTRIBUTION WIDTH 14.2 % (11.5-14.5); WHITE BLOOD COUNT 5.1 K/uL (4.8-10.8)
[2016-09-01 07:32] LABS: CHLORIDE 101 mmol/L (98-107)
[2016-09-01 07:33] LABS: POTASSIUM 4.2 mmol/L (3.6-5.2); SODIUM 137 mmol/L (132-148)
[2016-09-01 07:35] LABS: BILIRUBIN,TOTAL 0.7 mg/dL (0.2-1.3); GFR AFRICAN-AMERICAN > 60
[2016-09-01 07:36] LABS: ALKALINE PHOSPHATASE 81 U/L (38-126); ALT/SGPT 22 U/L (9-52); AST/SGOT 18 U/L (14-36); CALCIUM 9.2 mg/dl (8.6-10.4); CARBON DIOXIDE 26 mmol/L (22-30); GLUCOSE,RANDOM 113 mg/dL (65-105); PHOSPHOROUS 4.2 mg/dL (2.5-4.5); TOTAL PROTEIN 7.4 g/dL (6.3-8.3)
[2016-09-01 08:46] LABS: BLOOD UREA NITROGEN 12 mg/dL (7-17)
[2016-09-01] MEDS: Pantoprazole 40 mg EC Tab PO SCH (09:09)
[2016-09-01] MEDS: Lactated Ringer's 1,000 ML IV SCH ×2 (09:09→14:35)
--- NOTE | 2016-09-01 11:18 | CP.PCM.PN ---
Subjective - Date & Time of Evaluation Date of Evaluation: 09/01/16 Time of Evaluation: 11:15 - Subjective Subjective: PGY-1 note for medicine, Dr. Brooks Patient was seen and examined at bedside. Patient is NPO again for OR with Dr. Rice for closing of I&D today. Patient reports that her pain is well tolerated and she did not need any pain medications. She states that she has been walking around and using the bathroom okay, with no complaints of d/c/n/v. She denies chest pain, palpitations, sob, cough, weakness, numbness, tingling, or changes to urination. Pt marked for discharge following closure of I&D today. Objective - Vital Signs/Intake and Output Vital Signs (last 24 hours): Temp Pulse Resp BP Pulse Ox 98.1 F 78 20 133/90 97 09/01/16 09:44 09/01/16 09:44 09/01/16 09:44 09/01/16 09:44 09/01/16 09:44 Intake and Output: 09/01/16 09/01/16 06:59 18:59 Intake Total 1025 Balance 1025 - Medications Medications: Current Medications Heparin Sodium (Porcine) (Heparin) 5,000 units SC Q12 [facility] Last Admin: 08/31/16 10:48 Dose: Not Given Cefazolin Sodium 1,000 mg/ (Sodium Chloride) 100 mls @ 100 mls/hr IVPB Q8H [facility] Last Admin: 09/01/16 09:01 Dose: 100 mls/hr Lactated Ringer's (Lactated Ringer's) 1,000 mls @ 150 mls/hr IV .Q6H40M [facility] Last Admin: 09/01/16 09:09 Dose: 150 mls/hr Ondansetron HCl (Zofran Inj) 4 mg IVP Q6H PRN PRN Reason: Nausea/Vomiting Pantoprazole Sodium (Protonix Ec Tab) 40 mg PO DAILY [facility] Last Admin: 09/01/16 09:09 Dose: Not Given Tramadol HCl (Ultram) 50 mg PO TID PRN PRN Reason: pain Last Admin: 08/31/16 21:15 Dose: 50 mg - Labs Labs: 09/01/16 07:13 09/01/16 07:13 PT 11.4 SECONDS (9.7-12.2) 08/28/16 12:18 INR 1.0 08/28/16 12:18 APTT 30 SECONDS (21-34) 08/28/16 12:18 - Additional Findings Additional findings: - Constitutional Appears: Non-toxic, No Acute Distress - Head Exam Head Exam: NORMAL INSPECTION - Eye Exam Eye Exam: EOMI Pupil Exam: NORMAL ACCOMODATION - ENT Exam ENT Exam: Mucous Membranes Moist - Respiratory Exam Respiratory Exam: Clear to Ausculation Bilateral, NORMAL BREATHING PATTERN. absent: Accessory Muscle Use, Rales, Rhonchi, Wheezes, Respiratory Distress - Cardiovascular Exam Cardiovascular Exam: REGULAR RHYTHM, +S1, +S2 - GI/Abdominal Exam GI & Abdominal Exam: Soft, Normal Bowel Sounds. absent: Distended, Firm, Guarding, Tenderness - Extremities Exam Extremities Exam: Normal Inspection. absent: Calf Tenderness, Pedal Edema Additional comments: Medial aspect of right leg dressing C/D/I. Good pulses, warm, able to move toes and ext well, sensation in tact - Back Exam Back Exam: NORMAL INSPECTION. absent: CVA tenderness (L), CVA tenderness (R), paraspinal tenderness - Neurological Exam Neurological Exam: Alert, Awake, CN II-XII Intact, Oriented x3 - Psychiatric Exam Psychiatric exam: Normal Affect, Normal Mood - Skin Skin Exam: Dry, Normal Color, Warm Assessment and Plan - Assessment and Plan (Free Text) Plan: Right Leg Cellulitis * Patient for repeat I&D with Dr. Dinero today * S/P Excision of Varicose Vein of Right Leg (08/19/16) * Afebrile, vitals stable, no leukocytosis * S/P I&D of right leg abscess POD #3 (08/28/16) - for OR today to close wound * Ultram for pain * Dr. Arroyo- consulted-help appreciated * Blood cultures (08/28/16): P. mirabilis * Ancef 1000mg IV Q8H Prophylactic Measure * GI PPX: Protonix 40mg PO daily * DVT PPX: SCDs contraindicated, Heparin 5000 SC Q12 - held for surgery today * NPO for surgery today Management per Dr. Todd Lowe, PGY-1 Assessment and Plan - Assessment and Plan (Free Text) Plan: Right Leg Cellulitis * Patient for closure of I&D with Dr. Dinero today * S/P Excision of Varicose Vein of Right Leg (08/19/16) * Afebrile, vitals stable, no leukocytosis * S/P I&D of right leg abscess POD #4 (08/28/16) with repeat (08/31/16) * Ultram PRN pain * Dr. Arroyo- consulted-help appreciated * Blood cultures and wound cultures sent * Ancef 1gm Q8H Prophylactic Measure * GI PPX: Protonix 40mg PO daily * DVT PPX: SCDs contraindicated, Heparin 5000 SC Q12 - held for surgery today * NPO for surgery today Management per Dr. Todd Lowe, PGY-1
--- NOTE | 2016-09-01 12:15 | CP.PCM.PN ---
Subjective - Date & Time of Evaluation Date of Evaluation: 09/01/16 Time of Evaluation: 08:00 - Subjective Subjective: cultures noted iv rx and wound care reordered Objective - Vital Signs/Intake and Output Vital Signs (last 24 hours): Temp Pulse Resp BP Pulse Ox 98.1 F 78 20 133/90 97 09/01/16 09:44 09/01/16 09:44 09/01/16 09:44 09/01/16 09:44 09/01/16 09:44 Intake and Output: 09/01/16 09/01/16 06:59 18:59 Intake Total 1025 Balance 1025 - Medications Medications: Current Medications Heparin Sodium (Porcine) (Heparin) 5,000 units SC Q12 [facility] Last Admin: 08/31/16 10:48 Dose: Not Given Cefazolin Sodium 1,000 mg/ (Sodium Chloride) 100 mls @ 100 mls/hr IVPB Q8H [facility] Last Admin: 09/01/16 09:01 Dose: 100 mls/hr Lactated Ringer's (Lactated Ringer's) 1,000 mls @ 150 mls/hr IV .Q6H40M [facility] Last Admin: 09/01/16 09:09 Dose: 150 mls/hr Ondansetron HCl (Zofran Inj) 4 mg IVP Q6H PRN PRN Reason: Nausea/Vomiting Pantoprazole Sodium (Protonix Ec Tab) 40 mg PO DAILY [facility] Last Admin: 09/01/16 09:09 Dose: Not Given Tramadol HCl (Ultram) 50 mg PO TID PRN PRN Reason: pain Last Admin: 08/31/16 21:15 Dose: 50 mg - Labs Labs: 09/01/16 07:13 09/01/16 07:13 PT 11.4 SECONDS (9.7-12.2) 08/28/16 12:18 INR 1.0 08/28/16 12:18 APTT 30 SECONDS (21-34) 08/28/16 12:18 - Constitutional Appears: Non-toxic, Chronically Ill - Head Exam Head Exam: NORMOCEPHALIC - Eye Exam Eye Exam: PERRL Pupil Exam: NORMAL ACCOMODATION - ENT Exam ENT Exam: Mucous Membranes Dry - Neck Exam Neck Exam: absent: Lymphadenopathy, Thyromegaly - Respiratory Exam Respiratory Exam: Decreased Breath Sounds, Clear to Ausculation Bilateral - Cardiovascular Exam Cardiovascular Exam: REGULAR RHYTHM, +S1, +S2 - GI/Abdominal Exam GI & Abdominal Exam: Distended, Soft - Rectal Exam Rectal Exam: Deferred - Exam Exam: NORMAL INSPECTION Assessment and Plan - Assessment and Plan (Free Text) Plan: cont iv rx and wound care as per orders
[2016-09-01] MEDS ORDERED: Lactated Ringer's 1,000 ML IV ONE ×2 (12:58)
[2016-09-01] MEDS ORDERED: Midazolam 2 MG/2 ML VIAL ONE (13:19)
[2016-09-01] MEDS ORDERED: Propofol 10 mg/ml Inj (20 ML) ONE (13:21)
[2016-09-01] MEDS ORDERED: Lidocaine Hydrochloride 5 ML INJ ONE (13:21)
[2016-09-01] MEDS ORDERED: HYDROmorphone 0.5 mg/0.5 ml ISec IVP PRN (14:14)
[2016-09-01 15:01] VITALS: TEMP 98.2
--- NOTE | 2016-09-01 15:07 | OP ---
PROCEDURE DATE: 09/01/2016 PREOPERATIVE DIAGNOSIS: Large open wound with abscess of the right knee and thigh area. POSTOPERATIVE DIAGNOSIS: Large open wound with abscess of the right knee and thigh area. PROCEDURES PERFORMED: Redrainage of right knee and thigh abscess with debridement and adjacent tissu e transfer closure. SURGEON: Laci Dinero MD. ANESTHESIA: General. ESTIMATED BLOOD LOSS: 30 mL. POSTOPERATIVE CONDITION: Stable. DESCRIPTION OF PROCEDURE: The patient was taken back to the OR today for staged debridement and clos ure of open wound of her leg secondary to a bad wound infection and abscess. General anesthesia admi nistered and the right knee and thigh area were prepped and draped. The wound was reopened and debri ded. Bleeding was controlled using the Bovie. Any remaining collections were drained. Larger blood vessels were repaired. Generous tissue flaps were raised and adjacent tissue transfer closure was p erformed using multiple layers of Monocryl, subcuticular Monocryl, and the skin was closed loosely wi th clips to facilitate drainage. The patient tolerated procedure well, returned to recovery room in stable condition. Laci Dinero MD cc: [id number] TT: 09/01/2016 15:06:33 ashley
[2016-09-01 15:29] VITALS: BP 121/68; PULSE 77; RESP 18; O2SAT 95
--- NOTE | 2016-09-01 15:42 | CP.PCM.DIS ---
Provider - Provider Date of Admission: 08/28/16 14:08 Attending physician: Juanpablo Brooks Jr, MD Primary care physician: Dr. Brooks Consults: Dr. Dinero (surgery) Dr. Arroyo (ID) Time Spent in preparation of Discharge (in minutes): 40 Hospital Course - Lab Results Lab Results: Micro Results 08/31/16 Unknown Leg - Right Gram Stain - Final 08/31/16 Unknown Leg - Right Wound Culture - Preliminary NO GROWTH AFTER 24 HOURS 08/28/16 21:30 Leg - Right Gram Stain - Final 08/28/16 21:30 Leg - Right Wound Culture - Final Proteus Mirabilis Most Recent Lab Values WBC 5.1 K/uL (4.8-10.8) 09/01/16 07:13 RBC 4.50 Mil/uL (3.80-5.20) 09/01/16 07:13 Hgb 13.2 g/dL (11.0-16.0) 09/01/16 07:13 Hct 39.2 % (34.0-47.0) 09/01/16 07:13 MCV 87.1 fL (81.0-99.0) 09/01/16 07:13 MCH 29.3 pg (27.0-31.0) 09/01/16 07:13 MCHC 33.6 g/dL (33.0-37.0) 09/01/16 07:13 RDW 14.2 % (11.5-14.5) 09/01/16 07:13 Plt Count 261 K/uL (130-400) 09/01/16 07:13 MPV 7.4 fL (7.2-11.7) 09/01/16 07:13 Neut % (Auto) 68.6 % (50.0-75.0) 09/01/16 07:13 Lymph % (Auto) 16.6 % (20.0-40.0) L 09/01/16 07:13 Saunders % (Auto) 10.2 % (0.0-10.0) H 09/01/16 07:13 Eos % (Auto) 3.6 % (0.0-4.0) 09/01/16 07:13 Baso % (Auto) 1.0 % (0.0-2.0) 09/01/16 07:13 Neut # 3.5 K/uL (1.8-7.0) 09/01/16 07:13 Lymph # 0.9 K/uL (1.0-4.3) L 09/01/16 07:13 Saunders # 0.5 K/uL (0.0-0.8) 09/01/16 07:13 Eos # 0.2 K/uL (0.0-0.7) 09/01/16 07:13 Baso # 0.0 K/uL (0.0-0.2) 09/01/16 07:13 PT 11.4 SECONDS (9.7-12.2) 08/28/16 12:18 INR 1.0 08/28/16 12:18 APTT 30 SECONDS (21-34) 08/28/16 12:18 Sodium 137 mmol/L (132-148) 09/01/16 07:13 Potassium 4.2 mmol/L (3.6-5.2) 09/01/16 07:13 Chloride 101 mmol/L (98-107) 09/01/16 07:13 Carbon Dioxide 26 mmol/L (22-30) 09/01/16 07:13 Anion Gap 14 (10-20) 09/01/16 07:13 BUN 12 mg/dL (7-17) 09/01/16 07:13 Creatinine 0.7 MG/DL (0.7-1.2) 09/01/16 07:13 Est GFR ( Amer) > 60 09/01/16 07:13 Est GFR (Non-Af Amer) > 60 09/01/16 07:13 POC Glucose (mg/dL) 112 mg/dL (65-110) H 08/28/16 22:39 Random Glucose 113 mg/dL (65-105) H 09/01/16 07:13 Calcium 9.2 mg/dl (8.6-10.4) 09/01/16 07:13 Phosphorus 4.2 mg/dL (2.5-4.5) 09/01/16 07:13 Magnesium 2.0 mg/dL (1.6-2.3) 09/01/16 07:13 Total Bilirubin 0.7 mg/dL (0.2-1.3) 09/01/16 07:13 AST 18 U/L (14-36) 09/01/16 07:13 ALT 22 U/L (9-52) 09/01/16 07:13 Alkaline Phosphatase 81 U/L (38-126) 09/01/16 07:13 Total Protein 7.4 g/dL (6.3-8.3) 09/01/16 07:13 Albumin 3.7 g/dL (3.5-5.0) 09/01/16 07:13 Globulin 3.7 gm/dL (2.2-3.9) 09/01/16 07:13 Albumin/Globulin Ratio 1.0 (1.0-2.1) 09/01/16 07:13 Urine HCG, Qual Negative (NEGATIVE) 09/01/16 09:23 Blood Type O POSITIVE 08/28/16 12:18 Antibody Screen Negative 08/28/16 12:18 - Hospital Course Hospital Course: On admission: 46F with presents to the ED S/P Excision of Varicose Vein of Right Leg POD #9 () with right leg pain and swelling. She stated she noticed redness a few days ago and it was leaking white fluid from the surgical site for the past two days. She also states having increased swelling as well as decreased sensation around site. Last night she reported having increasing pain and throbbing around the site. She did not come to the ED because she had an appointment scheduled with with Dr. Dinero today at his office, during which he told her to come to the ED. Admitted to having difficulty ambulating on the leg, even with the assistance of the crutches. Plan for OR today at 5pm. Denied fever, chills, headache, chest pain, SOB, abdominal pain, n/v/d/c, urinary symptoms. Hospital course: Pt admitted on 08/28/16 for right leg cellulitis. ID, Dr Arroyo, consulted, help appreciated. Started on Vancomycin and Zosyn. Pt had I&D with Dr. Dinero on 08/28, and 08/31, with closure on 09/01. Over course, wound culture was positive for proteus mirabilis. Antibiotic switched to Ancef. Pt remained afebrile, non- tachy over course. Pt was discharged on 09/01/[address] Dinero. Discharge Exam - Additional Findings Additional findings: - Constitutional Appears: Non-toxic, No Acute Distress - Head Exam Head Exam: NORMAL INSPECTION - Eye Exam Eye Exam: EOMI Pupil Exam: NORMAL ACCOMODATION - ENT Exam ENT Exam: Mucous Membranes Moist - Respiratory Exam Respiratory Exam: Clear to Ausculation Bilateral, NORMAL BREATHING PATTERN. absent: Accessory Muscle Use, Rales, Rhonchi, Wheezes, Respiratory Distress - Cardiovascular Exam Cardiovascular Exam: REGULAR RHYTHM, +S1, +S2 - GI/Abdominal Exam GI & Abdominal Exam: Soft, Normal Bowel Sounds. absent: Distended, Firm, Guarding, Tenderness - Extremities Exam Extremities Exam: Normal Inspection. absent: Calf Tenderness, Pedal Edema Additional comments: Medial aspect of right leg dressing C/D/I. Good pulses, warm, able to move toes and ext well, sensation in tact - Back Exam Back Exam: NORMAL INSPECTION. absent: CVA tenderness (L), CVA tenderness (R), paraspinal tenderness - Neurological Exam Neurological Exam: Alert, Awake, CN II-XII Intact, Oriented x3 - Psychiatric Exam Psychiatric exam: Normal Affect, Normal Mood - Skin Skin Exam: Dry, Normal Color, Warm Discharge Plan - Discharge Medications Prescriptions: Cefadroxil [Duricef] 500 mg PO BID 5 Days traMADol [Ultram] 50 mg PO Q6 PRN #20 tab PRN Reason: pain - Follow Up Plan Condition: GOOD Disposition: HOME/ ROUTINE Instructions: Cefadroxil (By mouth), Tramadol (By mouth), Cellulitis (DC), Debridement (DC), Pulmonary Embolism (DC), Pulmonary Embolism (GEN), Deep Venous Thrombosis (DC), Deep Venous Thrombosis (GEN) Additional Instructions: Light activity - Stay off feet as much as possible Set up appointment for Wednesday09/04/16 Referrals: Laci Dinero MD [Staff Provider] -
== END 2016-09-01 19:15 | disposition home or self-care (01) | DRG 899 ==
LOC: C.ER 11:43 → C.9E 14:08 → C.3T 14:25
PROVIDERS: ADMIT Internal Medicine; ATTEND Internal Medicine
PROC: 0JXN0ZB Transfer Right Lower Leg Subcutaneous Tissue and Fascia with Skin and Subcutaneous Tissue, Open Approach (ICD-10-PCS; 2016-08-28)
PROC: 0JBN0ZZ Excision of Right Lower Leg Subcutaneous Tissue and Fascia, Open Approach (ICD-10-PCS; 2016-08-28)
PROC: 0J9N0ZZ Drainage of Right Lower Leg Subcutaneous Tissue and Fascia, Open Approach (ICD-10-PCS; principal; 2016-08-28 14:00)
PROC: 0HBKXZZ Excision of Right Lower Leg Skin, External Approach (ICD-10-PCS; 2016-08-31)
PROC: 0HBHXZZ Excision of Right Upper Leg Skin, External Approach (ICD-10-PCS; 2016-08-31)
PROC: 0J9C3ZZ Drainage of Pelvic Region Subcutaneous Tissue and Fascia, Percutaneous Approach (ICD-10-PCS; 2016-08-31)
PROC: 0J9N0ZZ Drainage of Right Lower Leg Subcutaneous Tissue and Fascia, Open Approach (ICD-10-PCS; 2016-09-01)
PROC: 0HXKXZZ Transfer Right Lower Leg Skin, External Approach (ICD-10-PCS; 2016-09-01)
PROC: 0HXHXZZ Transfer Right Upper Leg Skin, External Approach (ICD-10-PCS; 2016-09-01)
PROC: 0JBN0ZZ Excision of Right Lower Leg Subcutaneous Tissue and Fascia, Open Approach (ICD-10-PCS; 2016-09-01)
PROC: 0JBL0ZZ Excision of Right Upper Leg Subcutaneous Tissue and Fascia, Open Approach (ICD-10-PCS; 2016-09-01)
DX: T81.4XXA Infection following a procedure, initial encounter (principal); I10 Essential (primary) hypertension; L02.415 Cutaneous abscess of right lower limb; L03.115 Cellulitis of right lower limb; B96.4 Proteus (mirabilis) (morganii) as the cause of diseases classified elsewhere; R22.41 Localized swelling, mass and lump, right lower limb; E66.9 Obesity, unspecified; Z90.49 Acquired absence of other specified parts of digestive tract

== ENCOUNTER 2016-09-14 08:18 | Inpatient (IN) | payer MEDICAID ==
[2016-09-14 08:18] VITALS: BMI 44.6
--- NOTE | 2016-09-14 08:54 | C.PDOC ---
History Of Present Illness 46 y/o F p/w L lower leg abscess with surrounding cellulitis. Denies fever, chills, chest pain, fever, vomiting. Time Seen by Provider: 09/14/16 08:28 Chief Complaint (Nursing): Abnormal Skin Integrity Past Medical History Vital Signs: Last Vital Signs Temp 98 F 09/14/16 08:26 Pulse 76 09/14/16 08:26 Resp 16 09/14/16 08:26 BP 126/88 09/14/16 08:26 Pulse Ox 98 09/14/16 08:26 - Medical History PMH: HTN, Peripheral Edema Denies: Chronic Kidney Disease Surgical History: Appendectomy, Tonsillectomy - [facility] Procedures DRAINAGE OF PELVIC SUBCU/FASCIA, PERC APPROACH (08/28/16) DRAINAGE OF R LOW LEG SUBCU/FASCIA, OPEN APPROACH (08/28/16) EXCISION OF R LOW LEG SUBCU/FASCIA, OPEN APPROACH (08/28/16) EXCISION OF R UP LEG SUBCU/FASCIA, OPEN APPROACH (08/28/16) EXCISION OF RIGHT LOWER LEG SKIN, EXTERNAL APPROACH (08/28/16) EXCISION OF RIGHT UPPER LEG SKIN, EXTERNAL APPROACH (08/28/16) NAIL REMOVAL (10/15/14) TRANSFER R LOW LEG SUBCU/FASCIA W SKIN, SUBCU, OPEN (08/28/16) TRANSFER RIGHT LOWER LEG SKIN, EXTERNAL APPROACH (08/28/16) TRANSFER RIGHT UPPER LEG SKIN, EXTERNAL APPROACH (08/28/16) Family History: States: No Known Family Hx - Social History Hx Alcohol Use: No Hx Substance Use: No - Immunization History Hx Influenza Vaccination: No Hx Pneumococcal Vaccination: Yes Review Of Systems Except As Marked, All Systems Reviewed And Found Negative. Constitutional: Negative for: Fever Cardiovascular: Negative for: Chest Pain Physical Exam - Physical Exam Appears: No Acute Distress Head: Normacephalic Eye(s): bilateral: PERRL Oral Mucosa: Moist Neck: Normal ROM Cardiovascular: Rhythm Regular Respiratory: Normal Breath Sounds Gastrointestinal/Abdominal: Soft, No Tenderness Extremity: Other (L thigh area of fluctuance, induration, erythema on medial aspect distally, feels deep to tissue) Pulses: Left Radial: Normal, Right Radial: Normal Neurological/Psych: Normal Speech, Normal Cognition ED Course And Treatment O2 Sat by Pulse Oximetry: 98 Medical Decision Making Medical Decision Making: Dr. Dinero accepts patient to OR. Indicates no preop labs needed due to old chart and make NPO for OR. Disposition - Disposition Disposition: HOSPITALIZED Disposition Time: 08:54 Condition: FAIR - Clinical Impression Clinical Impression: Abscess, Cellulitis
[2016-09-14] MEDS ORDERED: Bupivacaine HCl 0.25% PF (10 ml) Inj ONE (14:03)
[2016-09-14] MEDS ORDERED: ceFAZolin IV 2 gm in Dextrose 1 GM/50 ML BAG IVPB ONE (14:03)
[2016-09-14] MEDS ORDERED: Lactated Ringer's 1,000 ML IV ONE ×2 (14:05→16:45)
[2016-09-14] MEDS ORDERED: Propofol 10 mg/ml Inj (20 ML) ONE (14:08)
[2016-09-14] MEDS ORDERED: Midazolam 2 MG/2 ML VIAL ONE (14:08)
[2016-09-14] MEDS ORDERED: Oxycodone/Acetaminophen 5/325 mg Tab PO PRN (14:46)
[2016-09-14] MEDS: HYDROmorphone 0.5 mg/0.5 ml ISec IVP PRN ×2 (15:25→15:58)
--- NOTE | 2016-09-14 17:37 | OP ---
PROCEDURE DATE: 09/14/2016 PREOPERATIVE DIAGNOSIS: Inflammatory mass of the right leg with cellulitis. POSTOPERATIVE DIAGNOSIS: Inflammatory mass of the right leg with cellulitis. PROCEDURE PERFORMED: Wide and deep excision of inflammatory mass of the right knee and leg area with adjacent tissue transfer closure. SURGEON: Laci Dinero MD. ANESTHESIA: General. ESTIMATED BLOOD LOSS: 30 mL. POSTOPERATIVE CONDITION: Stable. INDICATIONS FOR SURGERY: This is a 46-year-old male who recently underwent surgical treatment of phl ebitis in her left leg presents with a new finding in her right thigh and knee area consistent with a n inflammatory mass with phlebitis for a wide and deep excision. She was seen in the Emergency Room this morning. DESCRIPTION OF PROCEDURE: The patient taken to the operating room. General anesthesia was administe red. The medial right thigh and knee were prepped and draped. A generous elliptical incision was ma de surrounding the inflammatory mass and it was taken down all the way to the muscular layer and the mass was dissected free and removed. Bleeding was controlled using the Bovie. A larger blood vessel was repaired. The wound was irrigated with saline. tissue flaps were raised using the Bovie and adjacent tissue transfer closure was performed using multiple layers of Monocryl, subcuticular Mo nocryl, and glue. The patient tolerated procedure well, returned to recovery room in stable conditio n. Laci Dinero MD cc: [id number] TT: 09/14/2016 17:36:41 mo
--- NOTE | 2016-09-14 20:38 | CP.PCM.CON ---
<Girish Haider - Last Filed: 09/14/16 20:26> History of Present Illness - History of Present Illness History of Present Illness: Consult Note- Hospitalist Service Patient is a 46 year old female with PMHx of recurrent varicose veins that comes in after being sent by Dr. Dinero. Patient reports that she had varicose vein surgery in July [address] Dinero, which got infected and resulted in her coming in on August 28 for antibiotics and additional I&D. Patient started to develop a mass in her left proximal thigh. Patient was told to come in to have the mass cleaned out. Patient currently reports no acute complaints PMHx: Recurrent varicose veins PSHx: Varicose vein surgery, I&D of r leg Allergies: Contrast Fam hx: Maternal aunt - breast cancer Social hx: Denies smoking or drug history. Occasional alcohol history. Review of Systems - Constitutional Constitutional: absent: Chills, Fatigue, Weight Loss - EENT Eyes: absent: Blurred Vision, Change in Vision - Cardiovascular Cardiovascular: absent: Chest Pain, Irregular Heart Rhythm, Leg Edema, Palpitations, Pedal Edema - Respiratory Respiratory: absent: Cough, Dyspnea, Wheezing - Gastrointestinal Gastrointestinal: absent: Abdominal Pain, Constipation, Diarrhea, Nausea, Vomiting - Genitourinary Genitourinary: absent: Difficulty Urinating, Dysuria - Integumentary Integumentary: Lesions. absent: Swelling, Wounds - Neurological Neurological: absent: Abnormal Movements, Tingling, Tremor, Weakness - Psychiatric Psychiatric: absent: Panic Attacks, Suicidal Ideation - Endocrine Endocrine: absent: Fatigue, Palpitations Past Patient History - Infectious Disease Hx of Infectious Diseases: None - Past Medical History & Family History Past Medical History?: Yes - Past Social History Smoking Status: Never Smoked Chewing Tobacco Use: No Cigar Use: No Alcohol: None Drugs: Denies - CARDIAC Hx Cardiac Disorders: Yes Hx Hypertension: Yes Hx Peripheral Edema: Yes Hx Peripheral Vascular Disease: Yes Other/Comment: VARICOSE VEINS HX DVT 10 YEARS AGO - PULMONARY Hx Respiratory Disorders: Yes Hx Respiratory Tract Infection: Yes (APR 2016) - NEUROLOGICAL Hx Neurological Disorder: No - HEENT Hx HEENT Problems: No - RENAL Hx Chronic Kidney Disease: No - ENDOCRINE/METABOLIC Hx Endocrine Disorders: No - HEMATOLOGICAL/ONCOLOGICAL Hx Blood Disorders: No - INTEGUMENTARY Hx Dermatological Problems: Yes Other/Comment: varicose vein surgery. Redness right knee and leg - MUSCULOSKELETAL/RHEUMATOLOGICAL Hx Musculoskeletal Disorders: No Hx Falls: No - GASTROINTESTINAL Hx Gastrointestinal Disorders: No - GENITOURINARY/GYNECOLOGICAL Hx Genitourinary Disorders: Yes (PELVIC PAIN) - PSYCHIATRIC Hx Psychophysiologic Disorder: No Hx Substance Use: No - SURGICAL HISTORY Hx Surgeries: Yes Hx Appendectomy: Yes Hx Orthopedic Surgery: Yes (LEFT FOOT RECONSTRUCTED ARCH HARDWARE) Hx Tonsillectomy: Yes Hx Vascular Surgery: Yes (VEIN STRIPPING) Other/Comment: VEIN SX. ARCH REPAIR - ANESTHESIA Hx Anesthesia: Yes Hx Anesthesia Reactions: No Hx Malignant Hyperthermia: No Has any member of the family had a problem w/ anesthesia?: No Meds Allergies/Adverse Reactions: Allergies Allergy/AdvReac Type Severity Reaction Status Date / Time contrast dye Allergy ITCHING Uncoded 09/14/16 08:32 - Medications Medications: Current Medications Docusate Sodium (Colace) 100 mg PO BID [facility] Enoxaparin Sodium (Lovenox) 40 mg SC DAILY [facility] Cefazolin Sodium (Ancef) 1 gm in 50 mls @ 100 mls/hr IVPB Q8H [facility] Ketorolac Tromethamine (Toradol) 30 mg IVP Q6 PRN PRN Reason: pain 8-10 Stop: 09/19/16 14:47 Ondansetron HCl (Zofran Inj) 4 mg IVP Q6 PRN PRN Reason: Nausea/Vomiting Oxycodone/Acetaminophen (Percocet 5/325 Mg Tab) 2 tab PO Q4H PRN PRN Reason: pain Stop: 09/17/16 14:47 Pantoprazole Sodium (Protonix Inj) 40 mg IVP DAILY [facility] Physical Exam - Constitutional Appears: Non-toxic, No Acute Distress - Head Exam Head Exam: ATRAUMATIC, NORMAL INSPECTION, NORMOCEPHALIC - Eye Exam Pupil Exam: NORMAL ACCOMODATION, PERRL - ENT Exam ENT Exam: Mucous Membranes Moist - Respiratory Exam Respiratory Exam: Clear to Auscultation Bilateral, NORMAL BREATHING PATTERN. absent: Prolonged Expiratory Phase, Rales, Rhonchi, Wheezes - Cardiovascular Exam Cardiovascular Exam: REGULAR RHYTHM, +S1, +S2 - Neurological Exam Neurological exam: Alert, CN II-XII Intact, Oriented x3 - Psychiatric Exam Psychiatric exam: Normal Affect, Normal Mood - Skin Skin Exam: Dry, Intact, Normal Color, Warm Results - Vital Signs Recent Vital Signs: Last Vital Signs Temp 97.2 F L 09/14/16 14:55 Pulse 72 09/14/16 16:25 Resp 16 09/14/16 16:25 BP 98/60 L 09/14/16 16:25 Pulse Ox 98 09/14/16 16:25 Assessment & Plan (1) Abscess of left leg Status: Acute Comment: s/p I&D with Dr. Dinero on 09/14/16. Continue Ancef 1gm IVPB Q8h. Percocet 2 tab PO Q4h PRN. Toradol 30mg IVP Q6h PRN. Zofran 4mg IVP Q6h PRN. Colace 100mg PO BID (2) Prophylactic measure Status: Acute Comment: Protonix 40mg IVP Daily. Lovenox 40mg SC Daily <Hari Latif - Last Filed: 09/15/16 17:53> Meds - Medications Medications: Current Medications Docusate Sodium (Colace) 100 mg PO BID [facility] Last Admin: 09/15/16 17:18 Dose: 100 mg Enoxaparin Sodium (Lovenox) 40 mg SC DAILY [facility] Last Admin: 09/15/16 09:30 Dose: 40 mg Cefazolin Sodium (Ancef) 1 gm in 50 mls @ 100 mls/hr IVPB Q8H [facility] Last Admin: 09/15/16 14:30 Dose: 100 mls/hr Ketorolac Tromethamine (Toradol) 30 mg IVP Q6 PRN PRN Reason: pain 8-10 Stop: 09/19/16 14:47 Last Admin: 09/15/16 03:15 Dose: 30 mg Ondansetron HCl (Zofran Inj) 4 mg IVP Q6 PRN PRN Reason: Nausea/Vomiting Oxycodone/Acetaminophen (Percocet 5/325 Mg Tab) 2 tab PO Q4H PRN PRN Reason: pain Stop: 09/17/16 14:47 Pantoprazole Sodium (Protonix Inj) 40 mg IVP DAILY [facility] Last Admin: 09/15/16 09:30 Dose: 40 mg Results - Vital Signs Recent Vital Signs: Last Vital Signs Temp 98.1 F 09/15/16 17:00 Pulse 80 09/15/16 17:00 Resp 20 09/15/16 17:00 BP 114/76 06/20/17 17:00 Pulse Ox 97 09/15/16 17:00 - Labs Result Diagrams: 09/15/16 07:14 09/15/16 07:14 Labs: Laboratory Results - last 24 hr 09/15/16 09/15/16 07:14 07:14 WBC 4.5 L RBC 4.43 Hgb 12.7 Hct 38.7 MCV 87.3 MCH 28.7 MCHC 32.9 L RDW 13.7 Plt Count 260 MPV 7.6 Neut % (Auto) 68.7 Lymph % (Auto) 16.5 L Storey % (Auto) 10.0 Eos % (Auto) 3.7 Baso % (Auto) 1.1 Neut # 3.1 Lymph # 0.7 L Storey # 0.4 Eos # 0.2 Baso # 0.0 Sodium 139 Potassium 4.1 Chloride 106 Carbon Dioxide 25 Anion Gap 13 BUN 12 Creatinine 0.7 Est GFR ( Amer) > 60 Est GFR (Non-Af Amer) > 60 Random Glucose 99 Calcium 9.1 Attending/Attestation - Attestation I have personally seen and examined this patient.: Yes I have fully participated in the care of the patient.: Yes I have reviewed all pertinent clinical information: Yes Notes (Text): 09/15/16 17:51 Patient was seen and examined at bedside This is a late computer entry I discussed the plan of care with the resident Continue IV antibiotics and post op management as per surgery I agree with the consultation note by the resident
[2016-09-14] MEDS: ceFAZolin 1 gm FROZEN Premix 1 GM/50 ML ML IVPB SCH (21:19)
[2016-09-15 02:36] VITALS: RESP 20
[2016-09-15] MEDS: ceFAZolin 1 gm FROZEN Premix 1 GM/50 ML ML IVPB SCH ×2 (05:31→14:30)
[2016-09-15 07:35] LABS: BASO % 1.1 % (0.0-2.0); EOS # 0.2 K/uL (0.0-0.7); EOS % 3.7 % (0.0-4.0); HEMATOCRIT 38.7 % (34.0-47.0); LYMPH # 0.7 K/uL (1.0-4.3); LYMPH % 16.5 % (20.0-40.0); MEAN CELL VOLUME 87.3 fL (81.0-99.0); MEAN CORPUSCULAR HEMOGLOBIN 28.7 pg (27.0-31.0); MEAN CORPUSCULAR HGB CONC 32.9 g/dL (33.0-37.0); MEAN PLATELET VOLUME 7.6 fL (7.2-11.7); MONO # 0.4 K/uL (0.0-0.8); RED CELL DISTRIBUTION WIDTH 13.7 % (11.5-14.5); WHITE BLOOD COUNT 4.5 K/uL (4.8-10.8)
[2016-09-15 08:23] LABS: CHLORIDE 106 mmol/L (98-107); POTASSIUM 4.1 mmol/L (3.6-5.2); SODIUM 139 mmol/L (132-148)
[2016-09-15 08:26] LABS: GFR AFRICAN-AMERICAN > 60
[2016-09-15 08:27] LABS: BLOOD UREA NITROGEN 12 mg/dL (7-17); CALCIUM 9.1 mg/dl (8.6-10.4); CARBON DIOXIDE 25 mmol/L (22-30); GLUCOSE,RANDOM 99 mg/dL (65-105)
[2016-09-15] MEDS ORDERED: Enoxaparin 40 mg Syringe SC SCH (10:00)
--- NOTE | 2016-09-15 16:08 | CP.PCM.PN ---
<JinGerrisaad Mcclendon - Last Filed: 09/15/16 21:50> Subjective - Date & Time of Evaluation Date of Evaluation: 09/15/16 Time of Evaluation: 10:10 - Subjective Subjective: Medicine Note (PGY1) - Dr. Arreaga's Service Patient was seen and examined at bedside s/p I & D day 1. Patient is doing well and had no events overnight. Patient is tolerating diet, passing flatus, has had a bowel movement and is ambulating. Patient denies chest pain, dyspnea, dizziness, fever, chills, nausea, vomiting, pain. Objective - Vital Signs/Intake and Output Vital Signs (last 24 hours): Temp Pulse Resp BP Pulse Ox 98.0 F 65 20 133/89 96 09/15/16 08:24 09/15/16 08:24 09/15/16 08:24 09/15/16 08:24 09/15/16 08:24 Intake and Output: 09/15/16 09/15/16 06:59 18:59 Intake Total 2190 Balance 2190 - Medications Medications: Current Medications Docusate Sodium (Colace) 100 mg PO BID [facility] Last Admin: 09/15/16 09:30 Dose: 100 mg Enoxaparin Sodium (Lovenox) 40 mg SC DAILY [facility] Last Admin: 09/15/16 09:30 Dose: 40 mg Cefazolin Sodium (Ancef) 1 gm in 50 mls @ 100 mls/hr IVPB Q8H [facility] Last Admin: 09/15/16 14:30 Dose: 100 mls/hr Ketorolac Tromethamine (Toradol) 30 mg IVP Q6 PRN PRN Reason: pain 8-10 Stop: 09/19/16 14:47 Last Admin: 09/15/16 03:15 Dose: 30 mg Ondansetron HCl (Zofran Inj) 4 mg IVP Q6 PRN PRN Reason: Nausea/Vomiting Oxycodone/Acetaminophen (Percocet 5/325 Mg Tab) 2 tab PO Q4H PRN PRN Reason: pain Stop: 09/17/16 14:47 Pantoprazole Sodium (Protonix Inj) 40 mg IVP DAILY [facility] Last Admin: 09/15/16 09:30 Dose: 40 mg - Labs Labs: 09/15/16 07:14 09/15/16 07:14 - Constitutional Appears: Well, No Acute Distress - Head Exam Head Exam: NORMOCEPHALIC - Eye Exam Eye Exam: EOMI, Normal appearance - ENT Exam ENT Exam: Mucous Membranes Moist, Normal Exam - Respiratory Exam Respiratory Exam: Clear to Ausculation Bilateral, NORMAL BREATHING PATTERN - Cardiovascular Exam Cardiovascular Exam: REGULAR RHYTHM, +S1, +S2 - GI/Abdominal Exam GI & Abdominal Exam: Soft (Non-distended, Non-tender), Normal Bowel Sounds - Extremities Exam Extremities Exam: Normal Capillary Refill (s/p LLL I & D, bandage was dry and intact ), Normal Inspection - Neurological Exam Neurological Exam: Alert, Altered, Awake, Oriented x3 - Psychiatric Exam Psychiatric exam: Normal Affect, Normal Mood - Skin Skin Exam: Dry, Normal Color, Warm Assessment and Plan - Assessment and Plan (Free Text) Assessment: 1. Abscess of left leg - Acute * s/p I&D with Dr. Dinero on 09/14/16 * Continue Ancef 1gm IVPB 8QH * Continue Toradol 30mg 2. Prophylactic measure- Acute * Protonix 40mg IVP daily * Lovenox 40mg SC Daily Per patient, patient will most likely be discharged today by Dr. Dinero <Anastasia Arreaga V - Last Filed: 09/16/16 00:35> Objective - Vital Signs/Intake and Output Vital Signs (last 24 hours): Temp Pulse Resp BP Pulse Ox 98.1 F 80 20 114/76 97 09/15/16 17:00 09/15/16 17:00 09/15/16 17:00 09/15/16 17:00 09/15/16 17:00 - Labs Labs: 09/15/16 07:14 09/15/16 07:14 Attending/Attestation - Attestation I have personally seen and examined this patient.: Yes I have fully participated in the care of the patient.: Yes I have reviewed all pertinent clinical information, including history, physical exam and plan: Yes Notes (Text): This is a late computer entry for 09/15/16. Patient seen, examined, and case discussed with day-time resident. Patient is in good spirits, pleasure to speak with, denies acute complaints. Patient reports she was told by surgery she can go home today and she is aware she needs to follow-up with surgery per his discharge instructions. Patient has had flatus and bowel movement and eager to go home. Patient denies acute complaints. 1. Abscess of left leg - Acute * s/p I&D POD #[address] Dinero on 09/14/16 * POD 1: wide and deep excision of inflammatory mass of the right knee and leg adajacent tissue transfer closure * Continue Ancef 1gm IVPB 8QH * Continue Toradol 30mg * Surgical decision-making in regards to preoperative/intraoperative and post- operative per discretion of surgeon 2. Prophylactic measure- Acute * Protonix 40mg IVP daily * Lovenox 40mg SC Daily Per patient, patient will most likely be discharged today by Dr. Dinero and confirmed in the [employer] system. Discharge instructions per surgery and patient to follow-up according to his instructions
[2016-09-15 17:02] VITALS: BP 114/76; PULSE 80; TEMP 98.1; O2SAT 97
== END 2016-09-15 18:40 | disposition home or self-care (01) | DRG 120 ==
LOC: C.ER 08:18 → C.SDS 09:03 → C.9S 14:46 → C.6T 15:13
PROVIDERS: ADMIT Surgery; ATTEND Surgery
PROC: 0HBLXZZ Excision of Left Lower Leg Skin, External Approach (ICD-10-PCS; principal; 2016-09-14 17:45)
DX: I83.12 Varicose veins of left lower extremity with inflammation (principal); L02.416 Cutaneous abscess of left lower limb; I10 Essential (primary) hypertension; L03.115 Cellulitis of right lower limb; Z80.3 Family history of malignant neoplasm of breast; I73.9 Peripheral vascular disease, unspecified

== ENCOUNTER 2016-09-26 17:44 | Emergency (ER) | payer MEDICAID | END 2016-09-26 19:20 | disposition home or self-care (01) | LOC: C.ER 17:44 | DX: Z48.00 Encounter for change or removal of nonsurgical wound dressing (principal) ==

== ENCOUNTER 2016-09-27 17:49 | Emergency (ER) | payer MEDICAID ==
[2016-09-27 17:49] VITALS: BMI 44.6
[2016-09-27 18:03] VITALS: BP 120/77; PULSE 86; RESP 15; TEMP 98.1; O2SAT 96
--- NOTE | 2016-09-27 18:40 | C.PDOC ---
History Of Present Illness 46 y/o female presents to the ED for wound check to her left thigh. Patient underwent I&D of abscess on 09/[address] Dinero. Patient has Rx from Dr. Dinero for wound packing and dressing change daily from 09/26-09/29. Patient states she has been compliant with her prescribed antibiotics. She denies fever , chills, and extremity numbness/weakness. Time Seen by Provider: 09/27/16 18:24 Chief Complaint (Nursing): Wound Check History Per: Patient History/Exam Limitations: no limitations Onset/Duration Of Symptoms: Hrs Current Symptoms Are (Timing): Still Present Location Of Injury: Left: Thigh Quality Of Symptoms: denies: Painful, Itching, Swollen, Draining Additional History Per: Patient Past Medical History Reviewed: Historical Data, Nursing Documentation, Vital Signs Vital Signs: Last Vital Signs Temp 98.1 F 09/27/16 18:01 Pulse 86 09/27/16 18:01 Resp 15 09/27/16 18:01 BP 120/77 09/27/16 18:01 Pulse Ox 96 09/27/16 20:12 - Medical History PMH: HTN, Peripheral Edema Surgical History: Appendectomy, Tonsillectomy - [facility] Procedures DRAINAGE OF PELVIC SUBCU/FASCIA, PERC APPROACH (08/28/16) DRAINAGE OF R LOW LEG SUBCU/FASCIA, OPEN APPROACH (08/28/16) EXCISION OF LEFT LOWER LEG SKIN, EXTERNAL APPROACH (09/14/16) EXCISION OF R LOW LEG SUBCU/FASCIA, OPEN APPROACH (08/28/16) EXCISION OF R UP LEG SUBCU/FASCIA, OPEN APPROACH (08/28/16) EXCISION OF RIGHT LOWER LEG SKIN, EXTERNAL APPROACH (08/28/16) EXCISION OF RIGHT UPPER LEG SKIN, EXTERNAL APPROACH (08/28/16) NAIL REMOVAL (10/15/14) TRANSFER R LOW LEG SUBCU/FASCIA W SKIN, SUBCU, OPEN (08/28/16) TRANSFER RIGHT LOWER LEG SKIN, EXTERNAL APPROACH (08/28/16) TRANSFER RIGHT UPPER LEG SKIN, EXTERNAL APPROACH (08/28/16) Family History: States: Unknown Family Hx - Social History Hx Alcohol Use: No Hx Substance Use: No - Immunization History Hx Influenza Vaccination: No Hx Pneumococcal Vaccination: Yes Review Of Systems Except As Marked, All Systems Reviewed And Found Negative. Constitutional: Negative for: Fever, Chills Skin: Positive for: Other (+wound check to left thigh ) Neurological: Negative for: Weakness, Numbness Physical Exam - Physical Exam Appears: Non-toxic, No Acute Distress Skin: Normal Color, Warm, Dry Head: Atraumatic, Normacephalic Eye(s): bilateral: Normal Inspection Nose: Normal Neck: Supple Lymphatic: No Axilla Node Tenderness Chest: Symmetrical Extremity: Normal ROM, No Tenderness, Capillary Refill (less than 2 seconds ), No Swelling, Other (Left thigh with open wound, packing in place saturated no bleeding) Neurological/Psych: Oriented x3, Normal Speech, Normal Motor, Normal Sensation Gait: Steady ED Course And Treatment O2 Sat by Pulse Oximetry: 96 (on RA) Pulse Ox Interpretation: Normal Medical Decision Making Medical Decision Making: Wound care: Wound irrigated with NS and betadyne. Wound packed with 1/2 inch sterile gauze. Xeroform dressing applied over and sterile adhesive dressing. Patient tolerated well. Disposition Counseled Patient/Family Regarding: Need For Followup - Disposition Referrals: Laci Dinero MD [Staff Provider] - Disposition: HOME/ ROUTINE Disposition Time: 18:38 Condition: STABLE Additional Instructions: Please keep dressing clean and dry Follow up as recommended for dressing changes and with Dr Dinero on September 30 Instructions: Acute Wound Care (ED) - POA Present On Arrival: None - Clinical Impression Clinical Impression: Change of dressing - PA / RAMP FLIGHT ATTENDANT / Resident Statement MD/DO has reviewed & agrees with the documentation as recorded. - Scribe Statement The provider has reviewed the documentation as recorded by the Scribe (Cyndi Kirby) All medical record entries made by the Scribe were at my direction and personally dictated by me. I have reviewed the chart and agree that the record accurately reflects my personal performance of the history, physical exam, medical decision making, and the department course for this patient. I have also personally directed, reviewed, and agree with the discharge instructions and disposition.
== END 2016-09-27 18:45 | disposition home or self-care (01) ==
LOC: C.ER 17:49
DX: Z48.00 Encounter for change or removal of nonsurgical wound dressing (principal)

== ENCOUNTER 2016-09-28 18:24 | Emergency (ER) | payer MEDICAID ==
[2016-09-28 18:24] VITALS: BMI 44.6
[2016-09-28 18:38] VITALS: RESP 18; TEMP 98.5; O2SAT 96
--- NOTE | 2016-09-28 19:05 | C.PDOC ---
History Of Present Illness 46 y/o female presents to the ED for wound check to her left thigh. Patient underwent I&D of abscess on 09/[address] Dinero. Patient has Rx from Dr. Dinero for wound packing and dressing change daily from 09/26-09/29. Patient states she has been compliant with her prescribed antibiotics. She denies fever , chills, and extremity numbness/weakness. Time Seen by Provider: 09/28/16 18:45 Chief Complaint (Nursing): Wound Check History Per: Patient History/Exam Limitations: no limitations Current Symptoms Are (Timing): Better Severity: Mild Recent travel outside of the [place]: No Past Medical History Reviewed: Historical Data, Nursing Documentation, Vital Signs Vital Signs: Last Vital Signs Temp 98.5 F 09/28/16 18:36 Pulse 69 09/28/16 19:08 Resp 18 09/28/16 19:08 BP 128/79 09/28/16 19:08 Pulse Ox 96 09/28/16 19:32 - Medical History PMH: HTN, Peripheral Edema Surgical History: Appendectomy, Tonsillectomy - [facility] Procedures DRAINAGE OF PELVIC SUBCU/FASCIA, PERC APPROACH (08/28/16) DRAINAGE OF R LOW LEG SUBCU/FASCIA, OPEN APPROACH (08/28/16) EXCISION OF LEFT LOWER LEG SKIN, EXTERNAL APPROACH (09/14/16) EXCISION OF R LOW LEG SUBCU/FASCIA, OPEN APPROACH (08/28/16) EXCISION OF R UP LEG SUBCU/FASCIA, OPEN APPROACH (08/28/16) EXCISION OF RIGHT LOWER LEG SKIN, EXTERNAL APPROACH (08/28/16) EXCISION OF RIGHT UPPER LEG SKIN, EXTERNAL APPROACH (08/28/16) NAIL REMOVAL (10/15/14) TRANSFER R LOW LEG SUBCU/FASCIA W SKIN, SUBCU, OPEN (08/28/16) TRANSFER RIGHT LOWER LEG SKIN, EXTERNAL APPROACH (08/28/16) TRANSFER RIGHT UPPER LEG SKIN, EXTERNAL APPROACH (08/28/16) Family History: States: Unknown Family Hx - Social History Hx Alcohol Use: No Hx Substance Use: No - Immunization History Hx Influenza Vaccination: No Hx Pneumococcal Vaccination: Yes Review Of Systems Constitutional: Negative for: Fever, Chills Skin: Positive for: Other (wound check left thigh) Neurological: Negative for: Weakness, Numbness Physical Exam - Physical Exam Appears: Non-toxic, No Acute Distress Skin: Warm, Dry, No Rash Head: Atraumatic, Normacephalic Eye(s): bilateral: Normal Inspection Neck: Normal ROM Extremity: Normal ROM, No Tenderness, Capillary Refill (<2 seconds), No Swelling , Other (left thigh with open wound, packing in place, saturated, no bleeding) Neurological/Psych: Oriented x3, Normal Speech ED Course And Treatment O2 Sat by Pulse Oximetry: 96 (room air) Pulse Ox Interpretation: Normal Medical Decision Making Medical Decision Making: Wound care: Wound irrigated with NS and betadyne. Wound packed with 1/2 inch sterile gauze. Xeroform dressing applied over and sterile adhesive dressing. Patient tolerated well. Additional Instructions: Please keep dressing clean and dry Follow up as recommended for dressing changes and with Dr Dinero on September 30 Disposition Counseled Patient/Family Regarding: Diagnosis, Need For Followup - Disposition Referrals: Laci Dinero MD [Staff Provider] - Disposition: HOME/ ROUTINE Disposition Time: 19:04 Condition: STABLE Additional Instructions: Please keep dressing clean and dry Follow up as recommended for dressing changes and with Dr Dinero on September 30 Instructions: Acute Wound Care (ED) - POA Present On Arrival: None - Clinical Impression Clinical Impression: Dressing change or removal, surgical wound, Change or removal of wound packing - PA / BUTTONHOLE MAKER / Resident Statement MD/DO has reviewed & agrees with the documentation as recorded. - Scribe Statement The provider has reviewed the documentation as recorded by the Scribmaged Macias All medical record entries made by the Scribmaged were at my direction and personally dictated by me. I have reviewed the chart and agree that the record accurately reflects my personal performance of the history, physical exam, medical decision making, and the department course for this patient. I have also personally directed, reviewed, and agree with the discharge instructions and disposition.
[2016-09-28 19:09] VITALS: BP 128/79; PULSE 69
== END 2016-09-28 19:13 | disposition home or self-care (01) ==
LOC: C.ER 18:24
DX: Z48.00 Encounter for change or removal of nonsurgical wound dressing (principal)

== ENCOUNTER 2016-09-29 16:39 | Emergency (ER) | payer MEDICAID ==
[2016-09-29 16:40] VITALS: BMI 44.6
[2016-09-29 16:50] VITALS: BP 133/81; PULSE 85; RESP 16; TEMP 98; O2SAT 100
--- NOTE | 2016-09-29 17:11 | C.PDOC ---
History Of Present Illness 46-year-old female, presents to the emergency department for evaluation of wound to her left thigh. Patient states she had an I&D procedure of an abscess on 09/[address] Dinero. Patient has Rx from Dr. Dinero for wound packing and dressing change daily from 09/26-09/29. Patient reports she has been compliant with her prescribed antibiotics. She denies fever, chills, nausea/vomiting, worsening pain, extremity numbness/weakness, or any other associated symptoms. No other complaints at this time. Time Seen by Provider: 09/29/16 16:55 Chief Complaint (Nursing): Wound Check History Per: Patient History/Exam Limitations: no limitations Onset/Duration Of Symptoms: Days Ago Current Symptoms Are (Timing): Still Present Location Of Injury: Left: Thigh Past Medical History Reviewed: Historical Data, Nursing Documentation, Vital Signs Vital Signs: Last Vital Signs Temp 98 F 09/29/16 16:45 Pulse 85 09/29/16 16:45 Resp 16 09/29/16 16:45 BP 133/81 09/29/16 16:45 Pulse Ox 100 09/29/16 17:56 - Medical History PMH: HTN, Peripheral Edema Denies: Chronic Kidney Disease Surgical History: Appendectomy, Tonsillectomy - [facility] Procedures DRAINAGE OF PELVIC SUBCU/FASCIA, PERC APPROACH (08/28/16) DRAINAGE OF R LOW LEG SUBCU/FASCIA, OPEN APPROACH (08/28/16) EXCISION OF LEFT LOWER LEG SKIN, EXTERNAL APPROACH (09/14/16) EXCISION OF R LOW LEG SUBCU/FASCIA, OPEN APPROACH (08/28/16) EXCISION OF R UP LEG SUBCU/FASCIA, OPEN APPROACH (08/28/16) EXCISION OF RIGHT LOWER LEG SKIN, EXTERNAL APPROACH (08/28/16) EXCISION OF RIGHT UPPER LEG SKIN, EXTERNAL APPROACH (08/28/16) NAIL REMOVAL (10/15/14) TRANSFER R LOW LEG SUBCU/FASCIA W SKIN, SUBCU, OPEN (08/28/16) TRANSFER RIGHT LOWER LEG SKIN, EXTERNAL APPROACH (08/28/16) TRANSFER RIGHT UPPER LEG SKIN, EXTERNAL APPROACH (08/28/16) Family History: States: No Known Family Hx - Social History Hx Alcohol Use: No Hx Substance Use: No - Immunization History Hx Influenza Vaccination: No Hx Pneumococcal Vaccination: Yes Review Of Systems Constitutional: Negative for: Fever, Chills Musculoskeletal: Negative for: Back Pain Skin: Positive for: Other (wound to left thigh) Neurological: Negative for: Weakness, Numbness Physical Exam - Physical Exam Appears: Non-toxic, No Acute Distress Skin: Warm, Dry, No Rash Extremity: Normal ROM, Capillary Refill (<2 seconds), No Deformity, Other (Left Lower Ext: There is an open wound approx 1 cm x 4 cm to the medial distal thigh , with packing in place, serous appearing drainage. No bleeding. No erythema or warmth. No signs or infx.) Neurological/Psych: Oriented x3 ED Course And Treatment O2 Sat by Pulse Oximetry: 100 Medical Decision Making Medical Decision Making: Prior Visits Notes and records from previous visits were reviewed. Patient seen in ED for wound check and packing removal/re-dressing on 09/26, 09/27 and 09/28. Packing removed from wound; wound irrigated with normal saline; fresh packing replaced, bandage applied, pt tolerated procedure well and will f/u with Dr Dinero tomorrow. Disposition Counseled Patient/Family Regarding: Diagnosis, Need For Followup - Disposition Referrals: Laci Dinero MD [Staff Provider] - Disposition: HOME/ ROUTINE Disposition Time: 17:20 Condition: STABLE Additional Instructions: Follow up with Dr Dinero tomorrow as scheduled. COntinue taking antibiotics. Forms: General Discharge Instructions - Clinical Impression Clinical Impression: Wound check, abscess - PA / CAPACITOR PACK PRESS OPERATOR / Resident Statement MD/DO has reviewed & agrees with the documentation as recorded. - Scribe Statement The provider has reviewed the documentation as recorded by the Scribe (Gopi Fritz) All medical record entries made by the Scribe were at my direction and personally dictated by me. I have reviewed the chart and agree that the record accurately reflects my personal performance of the history, physical exam, medical decision making, and the department course for this patient. I have also personally directed, reviewed, and agree with the discharge instructions and disposition.
== END 2016-09-29 17:15 | disposition home or self-care (01) ==
LOC: C.ER 16:39
DX: Z48.00 Encounter for change or removal of nonsurgical wound dressing (principal)

== ENCOUNTER 2016-09-30 12:23 | Inpatient (IN) | payer MEDICAID ==
[2016-09-30 12:23] VITALS: BMI 44.6
--- NOTE | 2016-09-30 14:01 | C.PDOC ---
History Of Present Illness 46 y/o female presents status post I&D to medial thigh by Dr. Dinero on 09/25; previously seen in ER 09/26, 09/27, and 09/29 for dressing changes, packing removal, and redressing. Patient presents today with c/o redness and discharge from the wounds to her left thigh. Patient notes she was seen by Dr. Dinero this morning and was sent to the ER for admission for IV abx. Patient reports she has been taking oral abx without improvement. Denies fever, abdominal pain, nausea, vomiting, or other complaints. Time Seen by Provider: 09/30/16 13:42 Chief Complaint (Nursing): Lower Extremity Problem/Injury History Per: Patient History/Exam Limitations: no limitations Onset/Duration Of Symptoms: Days Current Symptoms Are (Timing): Still Present Recent travel outside of the [place]: No Past Medical History Reviewed: Historical Data, Nursing Documentation, Vital Signs Vital Signs: Last Vital Signs Temp 98.1 F 09/30/16 12:33 Pulse 89 09/30/16 12:33 Resp 18 09/30/16 12:33 BP 153/86 H 09/30/16 12:33 Pulse Ox 97 09/30/16 14:02 - Medical History PMH: HTN, Peripheral Edema Surgical History: Appendectomy, Tonsillectomy - [facility] Procedures DRAINAGE OF PELVIC SUBCU/FASCIA, PERC APPROACH (08/28/16) DRAINAGE OF R LOW LEG SUBCU/FASCIA, OPEN APPROACH (08/28/16) EXCISION OF LEFT LOWER LEG SKIN, EXTERNAL APPROACH (09/14/16) EXCISION OF R LOW LEG SUBCU/FASCIA, OPEN APPROACH (08/28/16) EXCISION OF R UP LEG SUBCU/FASCIA, OPEN APPROACH (08/28/16) EXCISION OF RIGHT LOWER LEG SKIN, EXTERNAL APPROACH (08/28/16) EXCISION OF RIGHT UPPER LEG SKIN, EXTERNAL APPROACH (08/28/16) NAIL REMOVAL (10/15/14) TRANSFER R LOW LEG SUBCU/FASCIA W SKIN, SUBCU, OPEN (08/28/16) TRANSFER RIGHT LOWER LEG SKIN, EXTERNAL APPROACH (08/28/16) TRANSFER RIGHT UPPER LEG SKIN, EXTERNAL APPROACH (08/28/16) Family History: States: Unknown Family Hx - Social History Hx Alcohol Use: No Hx Substance Use: No - Immunization History Hx Influenza Vaccination: No Hx Pneumococcal Vaccination: Yes Review Of Systems Except As Marked, All Systems Reviewed And Found Negative. Constitutional: Negative for: Fever, Chills Cardiovascular: Negative for: Chest Pain Respiratory: Negative for: Cough, Shortness of Breath Gastrointestinal: Negative for: Nausea, Vomiting, Abdominal Pain Skin: Positive for: Lesions (open wounds / non-healing abscesses to left medial thigh ). Negative for: Rash Neurological: Negative for: Weakness, Numbness Physical Exam - Physical Exam Appears: Non-toxic, No Acute Distress Skin: Warm, Dry Head: Atraumatic, Normacephalic Oral Mucosa: Moist Chest: Symmetrical Cardiovascular: Rhythm Regular Respiratory: Normal Breath Sounds, No Rales, No Rhonchi, No Wheezing Gastrointestinal/Abdominal: Soft, No Tenderness, No Guarding, No Rebound Back: Normal Inspection Extremity: Normal ROM, Capillary Refill (< 2 sec. ), Other (Open wounds and abscesses that are packed to distal medial left thigh, with surrounding erythema and tenderness. 2 chronic appearing older wounds, healed, seem slightly red on right medial thigh. ) Extremity: Bilateral: Normal Color And Temperature Pulses: Left Dorsalis Pedis: Normal, Right Dorsalis Pedis: Normal Neurological/Psych: Oriented x3, Normal Speech, Normal Cognition, Normal Motor, Normal Sensation ED Course And Treatment - Laboratory Results Result Diagrams: 09/30/16 14:14 Lab Interpretation: No Acute Changes O2 Sat by Pulse Oximetry: 97 (RA) Pulse Ox Interpretation: Normal Progress Note: Labs ordered and reviewed. Reevaluation Time: 14:29 Reassessment Condition: Unchanged - Physician Consult Information Time Consulting Physician Contacted: 14:29 Physician Contacted: Juanpablo Brooks Jr. Outcome Of Conversation: Patient accepted for admission to his service for IV antibiotics. Disposition - Disposition Disposition: HOSPITALIZED Disposition Time: 14:30 Condition: STABLE - POA Present On Arrival: None - Clinical Impression Clinical Impression: Abscess of left leg, Cellulitis - Scribe Statement The provider has reviewed the documentation as recorded by the Ramsey Young Provider Attestation: All medical record entries made by the Ramsey were at my direction and personally dictated by me. I have reviewed the chart and agree that the record accurately reflects my personal performance of the history, physical exam, medical decision making, and the department course for this patient. I have also personally directed, reviewed, and agree with the discharge instructions and disposition.
[2016-09-30 14:18] LABS: BASO # 0.1 K/uL (0.0-0.2); BASO % 1.3 % (0.0-2.0); EOS # 0.2 K/uL (0.0-0.7); EOS % 3.5 % (0.0-4.0); LYMPH # 1.1 K/uL (1.0-4.3); LYMPH % 17.8 % (20.0-40.0); MEAN CELL VOLUME 87.3 fL (81.0-99.0); MEAN CORPUSCULAR HEMOGLOBIN 28.7 pg (27.0-31.0); MEAN CORPUSCULAR HGB CONC 32.9 g/dL (33.0-37.0); MEAN PLATELET VOLUME 7.4 fL (7.2-11.7); MONO # 0.7 K/uL (0.0-0.8); MONO % 11.2 % (0.0-10.0); NEUT # 4.2 K/uL (1.8-7.0); NEUT % 66.2 % (50.0-75.0); NRBC % 0.1 % (0.0-2.0); RBC 4.52 Mil/uL (3.80-5.20); RED CELL DISTRIBUTION WIDTH 14.4 % (11.5-14.5); WHITE BLOOD COUNT 6.3 K/uL (4.8-10.8)
--- NOTE | 2016-09-30 14:25 | CP.PCM.HP ---
History of Present Illness - History of Present Illness History of Present Illness: CC: leg abscess HPI: 46 yo female with no PMHx presents s/p excision of varicose veins of right and left medial thighs performed in July and August of this year. Patient is unsure of the specific dates but states that her surgery was performed by Dr. Dinero. She visited the ED on September 27, and for dressing changes, packing removal and redressing with minimal complaints. Patient states that her left medial dressings have been soaked with blood over the past few days. She complains of erythema, blood and purulent appearing discharge from the left wound site. Patient went to visit Dr. Dinero this morning for continued followup; whereupon he advised her to go to the ED for IV antibiotics since she was not responding to oral antibiotics. At this time patient is irritated about the ordeal because she thought that the wounds would have healed by now, and yet they have not. She admits to ambulating regularly on a daily basis. She admits that her appetite has decreased since being on antibiotics resulting in the loss of approximately 5 pounds. She denies subjective fevers or chills, nausea, vomiting, diarrhea, constipation, chest pain, palpitations or paresthesias at this time. PMHx: Denied PSHx: appendectomy, tonsillectomy, B/L medial thigh varicose vein removal (July,August 2016) , left foot arch surgery FamHx: Mom had CAD and had a pacemaker; Meds: oral antibiotics but unsure of name Allergies: Contrast dye Social Hx: Admits to socially drinking alcohol, states that she had years of second hand smoke exposure from mother but has never smoked cigarettes herself; denies illicit drug use PMD: Unknown Present on Admission - Present on Admission Any Indicators Present on Admission: No Review of Systems - Constitutional Constitutional: Weight Loss. absent: Fever, Frequent Falls - EENT Eyes: absent: Blurred Vision, Change in Vision, Pain Ears: absent: Decreased Hearing, Ear Discharge Nose/Mouth/Throat: absent: Nasal Discharge, Change in Voice - Cardiovascular Cardiovascular: absent: Chest Pain, Chest Pain at Rest - Respiratory Respiratory: absent: Cough, Dyspnea - Gastrointestinal Gastrointestinal: absent: Belching, Bloating, Nausea, Vomiting - Musculoskeletal Musculoskeletal: Arthralgias. absent: Back Pain, Muscle Weakness - Integumentary Integumentary: Bleeding Lesions, Changing Lesions, Hirsutism, Rash, Skin Pain, Skin Ulcer, Wounds. absent: Swelling, Jaundice - Neurological Neurological: absent: Abnormal Hearing, Abnormal Movements - Psychiatric Psychiatric: absent: Anxiety - Endocrine Endocrine: absent: Change in Body Appearance, Excessive Sweating - Hematologic/Lymphatic Hematologic: absent: Easy Bleeding, Easy Bruising Past Patient History - Infectious Disease Hx of Infectious Diseases: None - Past Medical History & Family History Past Medical History?: Yes - Past Social History Smoking Status: Never Smoked Alcohol: Social Drugs: Denies - CARDIAC Hx Hypertension: Yes Hx Peripheral Edema: Yes - PULMONARY Hx Respiratory Disorders: Yes Hx Respiratory Tract Infection: Yes (APR 2016) - NEUROLOGICAL Hx Neurological Disorder: No - HEENT Hx HEENT Problems: No - ENDOCRINE/METABOLIC Hx Endocrine Disorders: No - HEMATOLOGICAL/ONCOLOGICAL Hx Blood Disorders: No - INTEGUMENTARY Hx Dermatological Problems: Yes Other/Comment: varicose vein surgery. Redness right knee and leg - MUSCULOSKELETAL/RHEUMATOLOGICAL Hx Musculoskeletal Disorders: No Hx Falls: No - GASTROINTESTINAL Hx Gastrointestinal Disorders: No - GENITOURINARY/GYNECOLOGICAL Hx Genitourinary Disorders: Yes (PELVIC PAIN) - PSYCHIATRIC Hx Substance Use: No - SURGICAL HISTORY Hx Appendectomy: Yes Hx Tonsillectomy: Yes - ANESTHESIA Hx Anesthesia: Yes Hx Anesthesia Reactions: No Hx Malignant Hyperthermia: No Meds Allergies/Adverse Reactions: Allergies Allergy/AdvReac Type Severity Reaction Status Date / Time contrast dye Allergy Intermediate ITCHING Uncoded 09/30/16 12:37 Physical Exam - Constitutional Appears: No Acute Distress - Head Exam Head Exam: ATRAUMATIC, NORMAL INSPECTION, NORMOCEPHALIC - Eye Exam Eye Exam: EOMI, Normal appearance, PERRL Pupil Exam: NORMAL ACCOMODATION - ENT Exam ENT Exam: Mucous Membranes Moist, Normal Exam - Neck Exam Neck exam: Positive for: Normal Inspection - Respiratory Exam Respiratory Exam: NORMAL BREATHING PATTERN. absent: Chest Wall Tenderness, Rales, Wheezes - Cardiovascular Exam Cardiovascular Exam: REGULAR RHYTHM, +S1, +S2 - GI/Abdominal Exam GI & Abdominal Exam: Normal Bowel Sounds, Soft. absent: Tenderness - Extremities Exam Extremities exam: Positive for: full ROM, tenderness (medial ulcerations b/l), pedal pulses present. Negative for: pedal edema - Back Exam Back exam: FULL ROM - Neurological Exam Neurological exam: Alert, Oriented x3 - Psychiatric Exam Psychiatric exam: Normal Affect, Normal Mood - Skin Skin Exam: Dry, Erythema Additional comments: right healing incision wound noted left ulceration noted, dressing soaked in serosanguinous fluid and blood. erythema noted, no petechia or purpura noted - Expanded Skin Exam Expanded Type of lesion: Abscess Results - Vital Signs Recent Vital Signs: Last Vital Signs Temp 98.1 F 09/30/16 12:33 Pulse 89 09/30/16 12:33 Resp 18 09/30/16 12:33 BP 153/86 H 09/30/16 12:33 Pulse Ox 97 09/30/16 14:02 - Labs Result Diagrams: 09/30/16 14:14 09/30/16 14:14 Labs: Laboratory Results - last 24 hr 09/30/16 14:14 WBC 6.3 RBC 4.52 Hgb 13.0 Hct 39.4 MCV 87.3 MCH 28.7 MCHC 32.9 L RDW 14.4 Plt Count 315 MPV 7.4 Neut % (Auto) 66.2 Lymph % (Auto) 17.8 L Yancey % (Auto) 11.2 H Eos % (Auto) 3.5 Baso % (Auto) 1.3 Neut # 4.2 Lymph # 1.1 Yancey # 0.7 Eos # 0.2 Baso # 0.1 Assessment & Plan - Assessment and Plan (Free Text) Assessment: Left Leg Cellulitis * S/P Excision of Varicose Vein of b/l Legs * Afebrile, vitals and labs stable, no leukocytosis * Wound and blood cultures to be collected * Following culture collection, patient to be started on Vanc 1 gm Q12 and Zosyn q6 * F/U Vanc trough with Fri AM labs * Dr. Arroyo- consulted for antibiotic management- F/U recommendations * F/U AM labs Prophylactic Measure * GI PPX: Protonix 40mg PO daily * DVT PPX: SCDs held at this time, Heparin 5000 SC Q12 * Orders and management discussed with Dr. Brooks
[2016-09-30 14:33] LABS: AST/SGOT 16 U/L (14-36); GFR AFRICAN-AMERICAN > 60; GFR NON-AFRICAN AMERICAN > 60
[2016-09-30 14:34] LABS: ALT/SGPT 21 U/L (9-52); BLOOD UREA NITROGEN 16 mg/dL (7-17); CALCIUM 9.7 mg/dl (8.6-10.4)
--- NOTE | 2016-09-30 16:52 | CP.PCM.CON ---
History of Present Illness - History of Present Illness History of Present Illness: discussed on rounds 46 yo female with no PMHx presents s/p excision of varicose veins of right and left medial thighs performed in July and August of this year. . She visited the ED on September 27, and for dressing changes, packing removal and redressing with minimal complaints. Patient states that her left medial dressings have been soaked with blood over the past few days. She complains of erythema, blood and purulent appearing discharge from the left wound site. Patient went to visit Dr. Dinero followup; whereupon he advised her to go to the ED for IV antibiotics since she was not responding to oral antibiotics. \ ID consulted for antibiotic management PMHx: Denied PSHx: appendectomy, tonsillectomy, B/L medial thigh varicose vein removal (July, August 2016) , left foot arch surgery FamHx: Mom had CAD and had a pacemaker; Meds: oral antibiotics but unsure of name Allergies: Contrast dye Social Hx: Admits to socially drinking alcohol, states that she had years of second hand smoke exposure from mother but has never smoked cigarettes herself; denies illicit drug use PMD: Unknown Review of Systems - Constitutional Constitutional: As Per HPI - EENT Eyes: absent: As Per HPI, Blind Spots, Blurred Vision, Change in Vision, Decreased Night Vision, Diplopia, Discharge, Dry Eye, Exophthalmos, Floaters, Irritation, Itchy Eyes, Loss of Peripheral Vision, Pain, Photophobia, Requires Corrective Lenses, Sees Flashes, Spots in Vision, Tunnel Vision, Other Visual Disturbances, Loss of Vision, Other Ears: absent: As Per HPI, Decreased Hearing, Ear Discharge, Ear Pain, Tinnitus, Abnormal Hearing, Disequilibrium, Dizziness, Other Nose/Mouth/Throat: absent: As Per HPI, Epistaxis, Nasal Congestion, Nasal Discharge, Nasal Obstruction, Nasal Trauma, Nose Pain, Post Nasal Drip, Sinus Pain, Sinus Pressure, Bleeding Gums, Change in Voice, Dental Pain, Dry Mouth, Dysphagia, Halitosis, Hoarsness, Lip Swelling, Mouth Lesions, Mouth Pain, Odynophagia, Sore Throat, Throat Swelling, Tongue Swelling, Facial Pain, Neck Pain, Neck Mass, Other - Breasts Breasts: absent: As Per HPI, Change in Shape, Mass, Pain, Nipple Discharge, Nipple Inversion, Skin Changes, Swelling, Other - Cardiovascular Cardiovascular: absent: As Per HPI, Acrocyanosis, Chest Pain, Chest Pain at Rest , Chest Pain with Activity, Claudication, Diaphoresis, Dyspnea, Dyspnea on Exertion, Edema, Irregular Heart Rhythm, Pain Radiating to Arm/Neck/Jaw, Leg Edema, Leg Ulcers, Lightheadedness, Orthopnea, Palpitations, Paroxysmal Nocturnal Dyspnea, Pedal Edema, Radiating Pain, Rapid Heart Rate, Slow Heart Rate, Syncope, Other - Respiratory Respiratory: absent: As Per HPI, Cough, Dyspnea, Hemoptysis, Dyspnea on Exertion , Wheezing, Snoring, Stridor, Pain on Inspiration, Chest Congestion, Excessive Mucous Production, Change in Mucous Color, Pain with Coughing, Other - Gastrointestinal Gastrointestinal: absent: As Per HPI, Abdominal Pain, Belching, Bloating, Change in Bowel Habits, Change in Stool Character, Coffee Ground Emesis, Constipation, Cramping, Diarrhea, Dyspepsia, Dysphagia, Early Satiety, Excessive Flatus, Fecal Incontinence, Heartburn, Hematemesis, Hematochezia, Loose Stools, Melena, Nausea, Odynophagia, Temesmus, Vomiting, Other - Genitourinary Genitourinary: absent: As Per HPI, Change in Urinary Stream, Difficulty Urinating, Dysuria, Flank Pain, Hematuria, Pyuria, Nocturia, Urinary Incontinence, Urinary Frequency, Urinary Hesitance, Urinary Urgency, Voiding Freq/Small Amts, Freq UTI, Hx Renal/Bladder Calculi, Hx /Renal Surgery, Bladder Distension, Other - Reproductive: Female Reproductive:Female: absent: As Per HPI, Amenorrhea, Amenorrhea/ Control, Currently Menstual, Cycle <21 Days, Cycle >35 Days, Cycle Variable, Menses 1-7 Days, Menses >/= 8 Days, Menses Variable, Cycle > 4 Weeks Between, No Menses for 6 Months, Heavy Menses, Light Menses, Normal Menses, Spotting Between Cycles , S/P Hysterectomy, Menopausal, Post Menopausal, Premenarche, Abnormal Vaginal Bleeding, Dysmenorrhea, Dyspareunia, Genital Lesions, Genital Pruritis, Pelvic Pain, Prolapse Symptoms, Sexual Dysfunction, Vaginal Discharge, Vaginal Dryness , Vaginal Odor, Vaginal Pruritis, Other - Menstruation Menstruation: absent: As Per HPI, Amenorrhea, Amenorrhea/ Control, Currently Menstual, Cycle <21 Days, Cycle >35 Days, Cycle Variable, Menses 1-7 Days, Menses >/= 8 Days, Menses Variable, Cycle > 4 Weeks Between, No Menses for 6 Months, Heavy Menses, Light Menses, Normal Menses, Spotting Between Cycles , S/P Hysterectomy, Menopausal, Post Menopausal, Premenarche, Abnormal Vaginal Bleeding, Dysmenorrhea, Other - Musculoskeletal Musculoskeletal: As Per HPI - Integumentary Integumentary: As Per HPI, Skin Pain, Wounds - Neurological Neurological: absent: As Per HPI, Abnormal Gait, Abnormal Hearing, Abnormal Movements, Abnormal Speech, Behavioral Changes, Burning Sensations, Confusion, Convulsions, Disequilibrium, Dizziness, Numbness, Focal Weakness, Frequent Falls , Headaches, Lack of Coordination, Loss of Vision, Memory Loss, Paresthesias, Radicular Pain, Restless Legs, Sensory Deficit, Syncope, Tingling, Tremor, Vertigo, Weakness, Other Visual Disturbances, Other - Psychiatric Psychiatric: absent: As Per HPI, Abnormal Sleep Pattern, Anhedonia, Anxiety, Auditory Hallucinations, Behavioral Changes, Change in Appetite, Change in Libido, Confusion, Depression, Difficulty Concentrating, Hallucinations, Homicidal Ideation, Hopelessness, Irritability, Memory Loss, Mood Swings, Panic Attacks, Paranoia, Suicidal Ideation, Visual Hallucinations, Tactile Hallucinations, Other - Endocrine Endocrine: absent: As Per HPI, Change in Body Appearance, Change in Libido, Cold Intolorance, Deepening of Voice, Excessive Sweating, Fatigue, Flushing, Heat Intolorance, Increase in Ring/Shoe/Hat Size, Palpitations, Polydipsia, Polyphagia, Polyuria, Other - Hematologic/Lymphatic Hematologic: absent: As Per HPI, Easy Bleeding, Easy Bruising, Lymphadenopathy, Other Past Patient History - Infectious Disease Hx of Infectious Diseases: None - Past Medical History & Family History Past Medical History?: Yes - Past Social History Smoking Status: Never Smoked - CARDIAC Hx Hypertension: Yes Hx Peripheral Edema: Yes - PULMONARY Hx Respiratory Disorders: Yes Hx Respiratory Tract Infection: Yes (APR 2016) - NEUROLOGICAL Hx Neurological Disorder: No - HEENT Hx HEENT Problems: No - ENDOCRINE/METABOLIC Hx Endocrine Disorders: No - HEMATOLOGICAL/ONCOLOGICAL Hx Blood Disorders: No - INTEGUMENTARY Hx Dermatological Problems: Yes Other/Comment: varicose vein surgery. Redness right knee and leg - MUSCULOSKELETAL/RHEUMATOLOGICAL Hx Musculoskeletal Disorders: No Hx Falls: No - GASTROINTESTINAL Hx Gastrointestinal Disorders: No - GENITOURINARY/GYNECOLOGICAL Hx Genitourinary Disorders: Yes (PELVIC PAIN) - PSYCHIATRIC Hx Substance Use: No - SURGICAL HISTORY Hx Appendectomy: Yes Hx Tonsillectomy: Yes - ANESTHESIA Hx Anesthesia: Yes Hx Anesthesia Reactions: No Hx Malignant Hyperthermia: No Meds Allergies/Adverse Reactions: Allergies Allergy/AdvReac Type Severity Reaction Status Date / Time contrast dye Allergy Intermediate ITCHING Uncoded 09/30/16 12:37 Physical Exam - Constitutional Appears: Non-toxic, Chronically Ill - Head Exam Head Exam: NORMOCEPHALIC - Eye Exam Eye Exam: PERRL. absent: Scleral icterus - ENT Exam ENT Exam: Mucous Membranes Dry, Normal External Ear Exam - Neck Exam Neck exam: Negative for: Lymphadenopathy, Thyromegaly - Respiratory Exam Respiratory Exam: Decreased Breath Sounds, Clear to Auscultation Bilateral - Cardiovascular Exam Cardiovascular Exam: REGULAR RHYTHM, +S1, +S2 - GI/Abdominal Exam GI & Abdominal Exam: Diminished Bowel Sounds, Soft. absent: Tenderness - Rectal Exam Rectal Exam: Deferred - Exam Exam: NORMAL INSPECTION - Extremities Exam Extremities exam: Positive for: calf tenderness, tenderness. Negative for: pedal edema, pedal pulses present - Back Exam Back exam: absent: CVA tenderness (L), CVA tenderness (R) - Neurological Exam Neurological exam: Alert, CN II-XII Intact, Oriented x3, Reflexes Normal - Psychiatric Exam Psychiatric exam: Normal Affect - Skin Skin Exam: Dry, Erythema Results - Vital Signs Recent Vital Signs: Last Vital Signs Temp 98.1 F 09/30/16 12:33 Pulse 89 09/30/16 12:33 Resp 18 09/30/16 12:33 BP 153/86 H 09/30/16 12:33 Pulse Ox 97 09/30/16 14:30 - Labs Result Diagrams: 10/01/16 08:33 10/01/16 08:33 Labs: Laboratory Results - last 24 hr 09/30/16 09/30/16 14:14 14:14 WBC 6.3 RBC 4.52 Hgb 13.0 Hct 39.4 MCV 87.3 MCH 28.7 MCHC 32.9 L RDW 14.4 Plt Count 315 MPV 7.4 Neut % (Auto) 66.2 Lymph % (Auto) 17.8 L Hamblen % (Auto) 11.2 H Eos % (Auto) 3.5 Baso % (Auto) 1.3 Neut # 4.2 Lymph # 1.1 Hamblen # 0.7 Eos # 0.2 Baso # 0.1 Sodium 140 Potassium 4.0 Chloride 106 Carbon Dioxide 26 Anion Gap 13 BUN 16 Creatinine 0.7 Est GFR ( Amer) > 60 Est GFR (Non-Af Amer) > 60 Random Glucose 90 Calcium 9.7 Total Bilirubin 0.6 AST 16 ALT 21 Alkaline Phosphatase 94 Total Protein 8.2 Albumin 4.0 Globulin 4.2 H Albumin/Globulin Ratio 1.0 Assessment & Plan - Assessment and Plan (Free Text) Plan: cellulitis varicose ulcers possible abscess for I and D
[2016-09-30] MEDS: Piperacill/Tazo 3.375gm in Dex 3.375 GM/50 ML BAG IVPB SCH (20:47)
[2016-09-30] MEDS: Vancomycin 1 gm/NS 200 ml 1 GM/200 ML BAG IVPB SCH (20:48)
[2016-09-30 23:08] LABS: SQUAMOUS EPITHIAL 4 /hpf (0-5); URINE BACTERIA RARE (<OCC); URINE BILIRUBIN NEGATIVE (NEGATIVE); URINE BLOOD NEGATIVE (NEGATIVE); URINE CLARITY Hazy (Clear); URINE COLOR Yellow (YELLOW); URINE GLUCOSE (UA) NORMAL (Normal); URINE NITRATE NEGATIVE (NEGATIVE); URINE PROTEIN NEGATIVE (NEGATIVE); URINE UROBILINOGEN NORMAL mg/dL (0.2-1.0)
[2016-09-30 23:09] LABS: URINE LEUKOCYTE ESTERASE NEGATIVE Leu/uL (Negative)
[2016-10-01] MEDS: Piperacill/Tazo 3.375gm in Dex 3.375 GM/50 ML BAG IVPB SCH ×4 (00:02→18:24)
[2016-10-01] MEDS: Vancomycin 1 gm/NS 200 ml 1 GM/200 ML BAG IVPB SCH ×2 (06:01→18:24)
[2016-10-01 08:39] LABS: BASO # 0.1 K/uL (0.0-0.2); BASO % 1.3 % (0.0-2.0); EOS # 0.2 K/uL (0.0-0.7); EOS % 4.2 % (0.0-4.0); HEMOGLOBIN 12.5 g/dL (11.0-16.0); LYMPH # 0.9 K/uL (1.0-4.3); LYMPH % 15.7 % (20.0-40.0); MEAN CELL VOLUME 87.4 fL (81.0-99.0); MEAN CORPUSCULAR HEMOGLOBIN 28.5 pg (27.0-31.0); MEAN CORPUSCULAR HGB CONC 32.6 g/dL (33.0-37.0); MEAN PLATELET VOLUME 7.4 fL (7.2-11.7); MONO # 0.5 K/uL (0.0-0.8); MONO % 9.3 % (0.0-10.0); NEUT # 3.9 K/uL (1.8-7.0); NEUT % 69.5 % (50.0-75.0); NRBC % 0.1 % (0.0-2.0); RBC 4.4 Mil/uL (3.80-5.20); RED CELL DISTRIBUTION WIDTH 13.8 % (11.5-14.5); WHITE BLOOD COUNT 5.6 K/uL (4.8-10.8)
[2016-10-01 08:53] LABS: ALBUMIN 3.6 g/dL (3.5-5.0)
[2016-10-01 08:55] LABS: GFR AFRICAN-AMERICAN > 60; GFR NON-AFRICAN AMERICAN > 60
[2016-10-01 08:56] LABS: ALB/GLOB RATIO 0.9 (1.0-2.1); ALT/SGPT 18 U/L (9-52); AST/SGOT 14 U/L (14-36); BLOOD UREA NITROGEN 15 mg/dL (7-17)
[2016-10-01 08:57] LABS: MAGNESIUM 1.9 mg/dL (1.6-2.3)
[2016-10-01 16:04] VITALS: RESP 20
--- NOTE | 2016-10-01 17:56 | CP.PCM.PN ---
Subjective - Date & Time of Evaluation Date of Evaluation: 10/01/16 Time of Evaluation: 08:00 - Subjective Subjective: PMHx presents s/p excision of varicose veins of right and left medial thighs performed in July and August of this year. Objective - Vital Signs/Intake and Output Vital Signs (last 24 hours): Temp Pulse Resp BP Pulse Ox 98.8 F 78 20 126/77 97 10/01/16 15:46 10/01/16 15:46 10/01/16 15:46 10/01/16 15:46 10/01/16 15:46 Intake and Output: 10/01/16 10/01/16 06:59 18:59 Intake Total 1040 290 Balance 1040 290 - Medications Medications: Current Medications Docusate Sodium (Colace) 100 mg PO DAILY [facility] Last Admin: 10/01/16 11:15 Dose: 100 mg Heparin Sodium (Porcine) (Heparin) 5,000 units SC Q12 [facility] Last Admin: 10/01/16 09:30 Dose: 5,000 units Piperacillin Sod/Tazobactam Sod (Zosyn 3.375 Gm Iv Premix) 3.375 gm in 50 mls @ 100 mls/hr IVPB Q6H [facility] Last Admin: 10/01/16 11:58 Dose: 100 mls/hr Vancomycin/Sodium Chloride (Vancocin) 1 gm in 200 mls @ 133 mls/hr IVPB Q12H [facility] Stop: 10/05/16 18:01 Last Admin: 10/01/16 06:01 Dose: 133 mls/hr Pneumococcal Polyvalent Vaccine (Pneumovax 23 Vaccine) 0.5 ml IM .ONCE ONE Stop: 10/02/16 10:01 - Labs Labs: 10/01/16 08:33 10/01/16 08:33 - Constitutional Appears: Non-toxic - Head Exam Head Exam: NORMOCEPHALIC - Eye Exam Eye Exam: PERRL. absent: Scleral icterus - ENT Exam ENT Exam: Mucous Membranes Dry - Neck Exam Neck Exam: absent: Lymphadenopathy - Respiratory Exam Respiratory Exam: Decreased Breath Sounds, Rhonchi - Cardiovascular Exam Cardiovascular Exam: REGULAR RHYTHM - GI/Abdominal Exam GI & Abdominal Exam: Distended, Soft - Rectal Exam Rectal Exam: Deferred - Back Exam Back Exam: absent: CVA tenderness (L), CVA tenderness (R) - Neurological Exam Neurological Exam: Alert, Awake Assessment and Plan (1) Abscess of left leg Status: Acute (2) Cellulitis Status: Acute - Assessment and Plan (Free Text) Assessment: cont iv antibiotics/ wound care
--- NOTE | 2016-10-01 19:24 | CP.PCM.PN ---
<Deidra Barnes - Last Filed: 10/01/16 19:14> Subjective - Date & Time of Evaluation Date of Evaluation: 10/01/16 Time of Evaluation: 07:45 - Subjective Subjective: PGY1- medicine note- Dr. Brooks's service Patient seen and examined at bedside and in no acute distress. Patient has some pain in her legs at the sites of abscesses. Patient feels her right ear is clogged and feels right sinus pain. Patient has not had a bm. Patient denies chest pain, shortness of breath, abdominal pain, nausea, and vomiting. Objective - Vital Signs/Intake and Output Vital Signs (last 24 hours): Temp Pulse Resp BP Pulse Ox 98.8 F 78 20 126/77 97 10/01/16 15:46 10/01/16 15:46 10/01/16 15:46 10/01/16 15:46 10/01/16 15:46 Intake and Output: 10/01/16 10/02/16 18:59 06:59 Intake Total 290 Balance 290 - Medications Medications: Current Medications Docusate Sodium (Colace) 100 mg PO DAILY [facility] Last Admin: 10/01/16 11:15 Dose: 100 mg Heparin Sodium (Porcine) (Heparin) 5,000 units SC Q12 [facility] Last Admin: 10/01/16 09:30 Dose: 5,000 units Piperacillin Sod/Tazobactam Sod (Zosyn 3.375 Gm Iv Premix) 3.375 gm in 50 mls @ 100 mls/hr IVPB Q6H [facility] Last Admin: 10/01/16 18:24 Dose: 100 mls/hr Vancomycin/Sodium Chloride (Vancocin) 1 gm in 200 mls @ 133 mls/hr IVPB Q12H [facility] Stop: 10/05/16 18:01 Last Admin: 10/01/16 18:24 Dose: 133 mls/hr Pneumococcal Polyvalent Vaccine (Pneumovax 23 Vaccine) 0.5 ml IM .ONCE ONE Stop: 10/02/16 10:01 - Labs Labs: 10/01/16 08:33 10/01/16 08:33 - Constitutional Appears: Well, Non-toxic, No Acute Distress - Head Exam Head Exam: ATRAUMATIC, NORMAL INSPECTION, NORMOCEPHALIC - Eye Exam Eye Exam: EOMI, Normal appearance, PERRL - ENT Exam ENT Exam: Mucous Membranes Moist, Normal Exam - Neck Exam Neck Exam: Full ROM, Normal Inspection. absent: Lymphadenopathy - Respiratory Exam Respiratory Exam: Clear to Ausculation Bilateral, NORMAL BREATHING PATTERN. absent: Rales, Rhonchi, Wheezes, Respiratory Distress, Stridor - Cardiovascular Exam Cardiovascular Exam: REGULAR RHYTHM, RRR, +S1, +S2. absent: Murmur - GI/Abdominal Exam GI & Abdominal Exam: Soft, Normal Bowel Sounds. absent: Distended, Firm, Guarding, Rigid - Extremities Exam Extremities Exam: Full ROM Additional comments: right leg has two wounds with erythema and purulent drainage left thigh has wound filled with packing - Back Exam Back Exam: NORMAL INSPECTION. absent: rash noted - Neurological Exam Neurological Exam: Alert, Awake, Oriented x3 - Psychiatric Exam Psychiatric exam: Normal Affect, Normal Mood - Skin Skin Exam: Warm Additional comments: erythema around right wound left wound with packing Assessment and Plan - Assessment and Plan (Free Text) Assessment: Bilateral Leg Cellulitis * S/P Excision of Varicose Vein of b/l Legs * two wounds on right leg * one wound packed on left leg- to be packed with santyl milking once a day * Afebrile, vitals and labs stable, no leukocytosis * Wound and blood cultures to be collected * Following culture collection, patient on Vanc 1 gm Q12 and Zosyn q6 * F/U Vanc trough with Fri AM labs * Dr. Arroyo- consulted for antibiotic management- F/U recommendations Prophylactic Measure * GI PPX: Protonix 40mg PO daily * DVT PPX: SCDs held at this time, Heparin 5000 SC Q12 <Juanpablo Brooks Jr. - Last Filed: 10/06/16 10:35> Objective - Vital Signs/Intake and Output Vital Signs (last 24 hours): Temp Pulse Resp BP Pulse Ox 97.8 F 90 20 121/75 98 10/05/16 08:40 10/05/16 08:40 10/05/16 08:40 10/05/16 08:40 10/05/16 08:40 - Labs Labs: 10/05/16 07:11 10/05/16 07:11 Attending/Attestation - Attestation I have personally seen and examined this patient.: Yes I have fully participated in the care of the patient.: Yes I have reviewed all pertinent clinical information, including history, physical exam and plan: Yes Notes (Text): 10/06/16 10:35 Agree with resident note and findings
[2016-10-02] MEDS: Piperacill/Tazo 3.375gm in Dex 3.375 GM/50 ML BAG IVPB SCH ×3 (00:04→12:20)
[2016-10-02] MEDS: Vancomycin 1 gm/NS 200 ml 1 GM/200 ML BAG IVPB SCH ×2 (06:07→18:34)
[2016-10-02 07:31] LABS: ALBUMIN 3.5 g/dL (3.5-5.0)
[2016-10-02 07:34] LABS: GFR AFRICAN-AMERICAN > 60; GFR NON-AFRICAN AMERICAN > 60
[2016-10-02 07:35] LABS: ALB/GLOB RATIO 0.9 (1.0-2.1); ALT/SGPT 15 U/L (9-52); AST/SGOT 14 U/L (14-36); BLOOD UREA NITROGEN 15 mg/dL (7-17); CALCIUM 9.3 mg/dl (8.6-10.4)
[2016-10-02 07:36] LABS: MAGNESIUM 2.2 mg/dL (1.6-2.3)
[2016-10-02 08:19] LABS: BASO # 0.1 K/uL (0.0-0.2); BASO % 1.4 % (0.0-2.0); EOS # 0.3 K/uL (0.0-0.7); EOS % 4.5 % (0.0-4.0); HEMOGLOBIN 12.4 g/dL (11.0-16.0); LYMPH # 0.9 K/uL (1.0-4.3); LYMPH % 16.1 % (20.0-40.0); MEAN CELL VOLUME 86.7 fL (81.0-99.0); MEAN CORPUSCULAR HEMOGLOBIN 28.7 pg (27.0-31.0); MEAN CORPUSCULAR HGB CONC 33.1 g/dL (33.0-37.0); MEAN PLATELET VOLUME 7.6 fL (7.2-11.7); MONO # 0.6 K/uL (0.0-0.8); MONO % 11.2 % (0.0-10.0); NEUT # 3.8 K/uL (1.8-7.0); NEUT % 66.8 % (50.0-75.0); NRBC % 0.1 % (0.0-2.0); RBC 4.34 Mil/uL (3.80-5.20); RED CELL DISTRIBUTION WIDTH 13.9 % (11.5-14.5); WHITE BLOOD COUNT 5.6 K/uL (4.8-10.8)
--- NOTE | 2016-10-02 08:46 | CP.PCM.PN ---
<Deidra Barnes - Last Filed: 10/02/16 18:47> Subjective - Date & Time of Evaluation Date of Evaluation: 10/02/16 Time of Evaluation: 07:30 - Subjective Subjective: PGY-1, Medicine note- Dr. Brooks's Service Patient seen and examined at bedside and in no acute distress. Patient said legs hurt some especially when accidentally rub them together or if the dressings are being changed. Patient feels better today. Patient says ear fullness is decreasing but still feels congestion and sinus pressure on the right side. Patient denies shortness of breath, chest pain, palpitations, abdominal pain, nausea, vomiting, constipation, or diarrhea. Patient had small bm yesterday. Objective - Vital Signs/Intake and Output Vital Signs (last 24 hours): Temp Pulse Resp BP Pulse Ox 98.6 F 68 20 106/55 L 98 10/01/16 23:00 10/01/16 23:00 10/01/16 23:00 10/01/16 23:00 10/01/16 23:00 Intake and Output: 10/02/16 10/02/16 06:59 18:59 Intake Total 1100 Output Total 400 Balance 700 - Medications Medications: Current Medications Docusate Sodium (Colace) 100 mg PO DAILY [facility] Last Admin: 10/01/16 11:15 Dose: 100 mg Heparin Sodium (Porcine) (Heparin) 5,000 units SC Q12 [facility] Last Admin: 10/01/16 21:54 Dose: 5,000 units Piperacillin Sod/Tazobactam Sod (Zosyn 3.375 Gm Iv Premix) 3.375 gm in 50 mls @ 100 mls/hr IVPB Q6H [facility] Last Admin: 10/02/16 05:28 Dose: 100 mls/hr Vancomycin/Sodium Chloride (Vancocin) 1 gm in 200 mls @ 133 mls/hr IVPB Q12H [facility] Stop: 10/05/16 18:01 Last Admin: 10/02/16 06:07 Dose: 133 mls/hr Pneumococcal Polyvalent Vaccine (Pneumovax 23 Vaccine) 0.5 ml IM .ONCE ONE Stop: 10/02/16 10:01 - Labs Labs: 10/02/16 06:49 10/02/16 06:49 - Constitutional Appears: Well, Non-toxic, No Acute Distress - Head Exam Head Exam: ATRAUMATIC, NORMAL INSPECTION, NORMOCEPHALIC - Eye Exam Eye Exam: EOMI, Normal appearance, PERRL - ENT Exam ENT Exam: Mucous Membranes Moist, Normal Exam - Neck Exam Neck Exam: Full ROM, Normal Inspection. absent: Lymphadenopathy - Respiratory Exam Respiratory Exam: Clear to Ausculation Bilateral, NORMAL BREATHING PATTERN. absent: Rales, Rhonchi, Wheezes, Respiratory Distress, Stridor - Cardiovascular Exam Cardiovascular Exam: REGULAR RHYTHM, RRR, +S1, +S2. absent: Gallop, Rubs, Murmur - GI/Abdominal Exam GI & Abdominal Exam: Soft, Normal Bowel Sounds. absent: Firm, Guarding, Rigid, Tenderness - Extremities Exam Extremities Exam: Full ROM, Tenderness. absent: Normal Inspection Additional comments: right leg has two wounds with erythema left thigh has wound filled with packing - Back Exam Back Exam: NORMAL INSPECTION. absent: rash noted - Neurological Exam Neurological Exam: Alert, Awake, Oriented x3 - Psychiatric Exam Psychiatric exam: Normal Affect, Normal Mood - Skin Skin Exam: Warm. absent: Intact Additional comments: right leg has two wounds with erythema and purulent drainage left thigh has wound filled with packing Assessment and Plan - Assessment and Plan (Free Text) Assessment: Bilateral Leg Cellulitis * S/P Excision of Varicose Vein of b/l Legs * two wounds on right leg * one wound packed on left leg- to be packed with santyl milking once a day * Afebrile, vitals and labs stable, no leukocytosis * Wound and blood cultures to be collected * Following culture collection, patient on Vanco 1 gm Q12 and Zosyn q6 * 10/02: Vanco trough: 10.1 * Dr. Arroyo- consulted for antibiotic management recommends to continue Vanco and Zosyn * Left leg wound culture: Gram neg rods, Enterococcus Faecalis Prophylactic Measure * GI PPX: Protonix 40mg PO daily * DVT PPX: SCDs held at this time, Heparin 5000 SC Q12 <Juanpablo Brooks Jr. - Last Filed: 10/06/16 10:38> Objective - Vital Signs/Intake and Output Vital Signs (last 24 hours): Temp Pulse Resp BP Pulse Ox 97.8 F 90 20 121/75 98 10/05/16 08:40 10/05/16 08:40 10/05/16 08:40 10/05/16 08:40 10/05/16 08:40 - Labs Labs: 10/05/16 07:11 10/05/16 07:11 Attending/Attestation - Attestation I have personally seen and examined this patient.: Yes I have fully participated in the care of the patient.: Yes I have reviewed all pertinent clinical information, including history, physical exam and plan: Yes Notes (Text): 10/06/16 10:37 Agree with resident note and findings
[2016-10-02] MEDS ORDERED: Pneumococcal 23-Valent Vaccine IM ONE (10:00)
--- NOTE | 2016-10-02 15:52 | CP.PCM.PN ---
Subjective - Date & Time of Evaluation Date of Evaluation: 10/02/16 Time of Evaluation: 08:00 - Subjective Subjective: EVENTS NOTED CULTURES + pSEUDOMONAS + ENTEROCOCCUS CONT IV RX / WOUND CARE FOR NOW Objective - Vital Signs/Intake and Output Vital Signs (last 24 hours): Temp Pulse Resp BP Pulse Ox 98.1 F 76 20 116/77 95 10/02/16 09:23 10/02/16 09:23 10/02/16 09:23 10/02/16 09:23 10/02/16 09:23 Intake and Output: 10/02/16 10/02/16 06:59 18:59 Intake Total 1100 500 Output Total 400 Balance 700 500 - Medications Medications: Current Medications Docusate Sodium (Colace) 100 mg PO DAILY [facility] Last Admin: 10/02/16 10:47 Dose: 100 mg Heparin Sodium (Porcine) (Heparin) 5,000 units SC Q12 [facility] Last Admin: 10/02/16 10:47 Dose: 5,000 units Piperacillin Sod/Tazobactam Sod (Zosyn 3.375 Gm Iv Premix) 3.375 gm in 50 mls @ 100 mls/hr IVPB Q6H [facility] Last Admin: 10/02/16 12:20 Dose: 100 mls/hr Vancomycin/Sodium Chloride (Vancocin) 1 gm in 200 mls @ 133 mls/hr IVPB Q12H [facility] Stop: 10/05/16 18:01 Last Admin: 10/02/16 06:07 Dose: 133 mls/hr - Labs Labs: 10/02/16 06:49 10/02/16 06:49 - Constitutional Appears: Non-toxic, Chronically Ill - Head Exam Head Exam: NORMOCEPHALIC - Eye Exam Eye Exam: absent: Scleral icterus - ENT Exam ENT Exam: Mucous Membranes Dry - Neck Exam Neck Exam: absent: Lymphadenopathy - Respiratory Exam Respiratory Exam: Decreased Breath Sounds - Cardiovascular Exam Cardiovascular Exam: REGULAR RHYTHM - GI/Abdominal Exam GI & Abdominal Exam: Distended Assessment and Plan (1) Abscess of left leg Status: Acute (2) Cellulitis Status: Acute
[2016-10-02] MEDS ORDERED: Cefepime IV 1 gm in Dextrose 1 GM/50 ML BAG IVPB SCH (16:00)
[2016-10-02] MEDS: Cefepime IV 1 gm in Dextrose 1 GM/50 ML BAG IVPB SCH (17:45)
[2016-10-03] MEDS: Cefepime IV 1 gm in Dextrose 1 GM/50 ML BAG IVPB SCH ×2 (05:25→17:35)
[2016-10-03] MEDS: Vancomycin 1 gm/NS 200 ml 1 GM/200 ML BAG IVPB SCH ×2 (06:05→18:43)
[2016-10-03 08:33] LABS: BASO # 0.1 K/uL (0.0-0.2); BASO % 1.3 % (0.0-2.0); EOS # 0.2 K/uL (0.0-0.7); EOS % 4.6 % (0.0-4.0); HEMOGLOBIN 12.7 g/dL (11.0-16.0); LYMPH # 0.9 K/uL (1.0-4.3); MEAN CELL VOLUME 86.5 fL (81.0-99.0); MEAN CORPUSCULAR HEMOGLOBIN 28.5 pg (27.0-31.0); MEAN PLATELET VOLUME 7.5 fL (7.2-11.7); MONO # 0.5 K/uL (0.0-0.8); MONO % 9.9 % (0.0-10.0); NEUT # 3.1 K/uL (1.8-7.0); NEUT % 65.2 % (50.0-75.0); RBC 4.45 Mil/uL (3.80-5.20); RED CELL DISTRIBUTION WIDTH 13.9 % (11.5-14.5); WHITE BLOOD COUNT 4.8 K/uL (4.8-10.8)
[2016-10-03 08:45] LABS: ALBUMIN 3.6 g/dL (3.5-5.0)
[2016-10-03 08:48] LABS: GFR AFRICAN-AMERICAN > 60; GFR NON-AFRICAN AMERICAN > 60
[2016-10-03 08:49] LABS: ALB/GLOB RATIO 0.9 (1.0-2.1); ALT/SGPT 15 U/L (9-52); AST/SGOT 13 U/L (14-36); BLOOD UREA NITROGEN 13 mg/dL (7-17)
[2016-10-03 08:50] LABS: CALCIUM 9.5 mg/dl (8.6-10.4); MAGNESIUM 2.1 mg/dL (1.6-2.3)
--- NOTE | 2016-10-03 20:03 | CP.PCM.PN ---
<Deidra Barnes - Last Filed: 10/03/16 20:00> Subjective - Date & Time of Evaluation Date of Evaluation: 10/03/16 Time of Evaluation: 07:30 - Subjective Subjective: PGY-1, Medicine note- Dr. Brooks's Service Patient seen and examined at bedside and in no acute distress. Patient said legs hurt some especially when accidentally rub them together or if the dressings are being changed. Patient feels better today. Patient tries to walk around and and sit in chair. Patient denies shortness of breath, chest pain, palpitations, abdominal pain, nausea, vomiting, constipation, or diarrhea. Patient had small bm yesterday. Objective - Vital Signs/Intake and Output Vital Signs (last 24 hours): Temp Pulse Resp BP Pulse Ox 98.8 F 85 20 107/63 95 10/03/16 15:09 10/03/16 15:09 10/03/16 15:09 10/03/16 15:09 10/03/16 15:09 Intake and Output: 10/03/16 10/04/16 18:59 06:59 Intake Total 240 Balance 240 - Medications Medications: Current Medications Collagenase (Santyl) 30 gm TOP DAILY [facility] Docusate Sodium (Colace) 100 mg PO DAILY [facility] Last Admin: 10/03/16 10:07 Dose: 100 mg Heparin Sodium (Porcine) (Heparin) 5,000 units SC Q12 [facility] Last Admin: 10/03/16 10:06 Dose: 5,000 units Vancomycin/Sodium Chloride (Vancocin) 1 gm in 200 mls @ 133 mls/hr IVPB Q12H [facility] Stop: 10/05/16 18:01 Last Admin: 10/03/16 18:43 Dose: 133 mls/hr Cefepime HCl (Maxipime Iv 1 Gm Premix) 1 gm in 50 mls @ 100 mls/hr IVPB Q12H [facility] Last Admin: 10/03/16 17:35 Dose: 100 mls/hr - Labs Labs: 10/03/16 08:23 10/03/16 08:23 - Constitutional Appears: Well, Non-toxic, No Acute Distress - Head Exam Head Exam: ATRAUMATIC, NORMAL INSPECTION, NORMOCEPHALIC - Eye Exam Eye Exam: EOMI, Normal appearance, PERRL - ENT Exam ENT Exam: Mucous Membranes Moist, Normal Exam - Neck Exam Neck Exam: Full ROM, Normal Inspection. absent: Lymphadenopathy - Respiratory Exam Respiratory Exam: Clear to Ausculation Bilateral, NORMAL BREATHING PATTERN. absent: Rales, Rhonchi, Wheezes, Stridor - Cardiovascular Exam Cardiovascular Exam: REGULAR RHYTHM, RRR, +S1, +S2. absent: Gallop, Murmur - GI/Abdominal Exam GI & Abdominal Exam: Soft, Normal Bowel Sounds. absent: Firm, Guarding, Rigid, Tenderness - Extremities Exam Extremities Exam: Full ROM, Normal Capillary Refill, Tenderness. absent: Joint Swelling, Pedal Edema Additional comments: right leg has two wounds with decreasing erythema left thigh has wound filled with packing - Back Exam Back Exam: NORMAL INSPECTION. absent: rash noted - Neurological Exam Neurological Exam: Alert, Awake, Oriented x3 - Psychiatric Exam Psychiatric exam: Normal Affect, Normal Mood - Skin Skin Exam: Warm. absent: Intact Additional comments: right leg has two wounds with erythema left thigh has wound filled with packing, drainage Assessment and Plan - Assessment and Plan (Free Text) Assessment: Bilateral Leg Cellulitis * S/P Excision of Varicose Vein of b/l Legs * two wounds on right leg * one wound packed on left leg- to be packed with santyl milking once a day * Afebrile, vitals and labs stable, no leukocytosis * Wound and blood cultures to be collected * Following culture collection, patient on Vanco 1 gm Q12 and Zosyn q6 * 10/02: Vanco trough: 10.1 * Dr. Arroyo- consulted for antibiotic management recommends to continue Vanco and Zosyn * Left leg wound culture: Gram neg rods, Enterococcus Faecalis Prophylactic Measure * GI PPX: Protonix 40mg PO daily * DVT PPX: SCDs held at this time, Heparin 5000 SC Q12 <Juanpablo Brooks Jr. - Last Filed: 10/06/16 10:43> Objective - Vital Signs/Intake and Output Vital Signs (last 24 hours): Temp Pulse Resp BP Pulse Ox 97.8 F 90 20 121/75 98 10/05/16 08:40 10/05/16 08:40 10/05/16 08:40 10/05/16 08:40 10/05/16 08:40 - Labs Labs: 10/05/16 07:11 10/05/16 07:11 Attending/Attestation - Attestation I have personally seen and examined this patient.: Yes I have fully participated in the care of the patient.: Yes I have reviewed all pertinent clinical information, including history, physical exam and plan: Yes Notes (Text): 10/06/16 10:43 Agree with resident note and findings
[2016-10-04] MEDS: Cefepime IV 1 gm in Dextrose 1 GM/50 ML BAG IVPB SCH ×2 (05:08→17:43)
[2016-10-04] MEDS: Vancomycin 1 gm/NS 200 ml 1 GM/200 ML BAG IVPB SCH ×2 (05:54→18:47)
[2016-10-04 08:40] LABS: BASO # 0.1 K/uL (0.0-0.2); BASO % 1.3 % (0.0-2.0); EOS # 0.2 K/uL (0.0-0.7); EOS % 4.7 % (0.0-4.0); HEMOGLOBIN 12.7 g/dL (11.0-16.0); LYMPH % 20.3 % (20.0-40.0); MEAN CELL VOLUME 86.7 fL (81.0-99.0); MEAN CORPUSCULAR HEMOGLOBIN 28.7 pg (27.0-31.0); MEAN CORPUSCULAR HGB CONC 33.1 g/dL (33.0-37.0); MEAN PLATELET VOLUME 7.4 fL (7.2-11.7); MONO # 0.4 K/uL (0.0-0.8); NEUT # 3.1 K/uL (1.8-7.0); NEUT % 64.7 % (50.0-75.0); RBC 4.42 Mil/uL (3.80-5.20); WHITE BLOOD COUNT 4.8 K/uL (4.8-10.8)
[2016-10-04 08:54] LABS: ALBUMIN 3.7 g/dL (3.5-5.0)
[2016-10-04 08:57] LABS: ALB/GLOB RATIO 0.9 (1.0-2.1); AST/SGOT 17 U/L (14-36); BLOOD UREA NITROGEN 16 mg/dL (7-17); GFR AFRICAN-AMERICAN > 60; GFR NON-AFRICAN AMERICAN > 60
[2016-10-04 08:58] LABS: ALT/SGPT 26 U/L (9-52); CALCIUM 9.7 mg/dl (8.6-10.4); MAGNESIUM 1.9 mg/dL (1.6-2.3)
[2016-10-04] MEDS: Collagenase 250 Units/gm Ointment(30 gm) TOP SCH (10:20)
--- NOTE | 2016-10-04 12:34 | CP.PCM.PN ---
<Deidra Barnes - Last Filed: 10/04/16 20:35> Subjective - Date & Time of Evaluation Date of Evaluation: 10/04/16 Time of Evaluation: 07:00 - Subjective Subjective: PGY-1, Medicine note- Dr. Brooks's Service Patient seen and examined at bedside and in no acute distress. Patient says her legs feel a little better. Patient tries to walk around and and sit in chair. Patient using warm compresses on right leg to decrease the swelling. Patient denies shortness of breath, chest pain, palpitations, abdominal pain, nausea, vomiting, constipation, or diarrhea. Patient eating okay and having normal bowel movements. Objective - Vital Signs/Intake and Output Vital Signs (last 24 hours): Temp Pulse Resp BP Pulse Ox 97.9 F 77 20 105/67 96 10/04/16 08:00 10/04/16 08:00 10/04/16 08:00 10/04/16 08:00 10/04/16 08:00 Intake and Output: 10/04/16 10/04/16 06:59 18:59 Intake Total 1010 Balance 1010 - Medications Medications: Current Medications Collagenase (Santyl) 30 gm TOP DAILY [facility] Last Admin: 10/04/16 10:20 Dose: 1 applic Docusate Sodium (Colace) 100 mg PO DAILY [facility] Last Admin: 10/04/16 10:20 Dose: Not Given Vancomycin/Sodium Chloride (Vancocin) 1 gm in 200 mls @ 133 mls/hr IVPB Q12H [facility] Stop: 10/05/16 18:01 Last Admin: 10/04/16 05:54 Dose: 133 mls/hr Cefepime HCl (Maxipime Iv 1 Gm Premix) 1 gm in 50 mls @ 100 mls/hr IVPB Q12H [facility] Last Admin: 10/04/16 05:08 Dose: 100 mls/hr - Labs Labs: 10/04/16 08:24 10/04/16 08:24 - Constitutional Appears: Well, No Acute Distress - Head Exam Head Exam: ATRAUMATIC, NORMAL INSPECTION, NORMOCEPHALIC - Eye Exam Eye Exam: EOMI, Normal appearance, PERRL - ENT Exam ENT Exam: Mucous Membranes Moist, Normal Exam - Neck Exam Neck Exam: Full ROM, Normal Inspection. absent: Lymphadenopathy - Respiratory Exam Respiratory Exam: Clear to Ausculation Bilateral, NORMAL BREATHING PATTERN. absent: Rales, Rhonchi, Wheezes, Respiratory Distress, Stridor - Cardiovascular Exam Cardiovascular Exam: REGULAR RHYTHM, RRR, +S1, +S2. absent: Gallop, Murmur - GI/Abdominal Exam GI & Abdominal Exam: Soft, Normal Bowel Sounds. absent: Distended, Firm, Guarding, Rigid, Tenderness - Extremities Exam Extremities Exam: Full ROM, Normal Capillary Refill. absent: Joint Swelling, Pedal Edema Additional comments: right leg has two wounds with decreasing erythema left thigh has wound filled with packing - Back Exam Back Exam: NORMAL INSPECTION - Psychiatric Exam Psychiatric exam: Normal Affect, Normal Mood - Skin Skin Exam: Normal Color, Warm. absent: Intact Additional comments: right leg has two wounds with erythema left thigh has wound filled with packing, drainage Assessment and Plan - Assessment and Plan (Free Text) Assessment: Bilateral Leg Cellulitis * S/P Excision of Varicose Vein of b/l Legs * two wounds on right leg * one wound packed on left leg- to be packed with santyl milking once a day * Afebrile, vitals and labs stable, no leukocytosis * Wound and blood cultures to be collected * Following culture collection, patient on Vanco 1 gm Q12 and Zosyn q6 * 10/02: Vanco trough: 10.1 * Dr. Arroyo- consulted for antibiotic management recommends to continue Vanco and Zosyn * Left leg wound culture: Gram neg rods, Enterococcus Faecalis Prophylactic Measure * GI PPX: Protonix 40mg PO daily * DVT PPX: SCDs held at this time, Heparin 5000 SC Q12 <Juanpablo Brooks Jr. - Last Filed: 10/06/16 10:46> Objective - Vital Signs/Intake and Output Vital Signs (last 24 hours): Temp Pulse Resp BP Pulse Ox 97.8 F 90 20 121/75 98 10/05/16 08:40 10/05/16 08:40 10/05/16 08:40 10/05/16 08:40 10/05/16 08:40 - Labs Labs: 10/05/16 07:11 10/05/16 07:11 Attending/Attestation - Attestation I have personally seen and examined this patient.: Yes I have fully participated in the care of the patient.: Yes I have reviewed all pertinent clinical information, including history, physical exam and plan: Yes Notes (Text): 10/06/16 10:46 Agree with resident note and findings
--- NOTE | 2016-10-04 15:16 | CP.PCM.PN ---
Subjective - Date & Time of Evaluation Date of Evaluation: 10/04/16 Time of Evaluation: 10:00 - Subjective Subjective: left leg still draining iv rx in progress Objective - Vital Signs/Intake and Output Vital Signs (last 24 hours): Temp Pulse Resp BP Pulse Ox 97.9 F 77 20 105/67 96 10/04/16 08:00 10/04/16 08:00 10/04/16 08:00 10/04/16 08:00 10/04/16 08:00 Intake and Output: 10/04/16 10/04/16 06:59 18:59 Intake Total 1010 240 Balance 1010 240 - Medications Medications: Current Medications Collagenase (Santyl) 30 gm TOP DAILY [facility] Last Admin: 10/04/16 10:20 Dose: 1 applic Docusate Sodium (Colace) 100 mg PO DAILY [facility] Last Admin: 10/04/16 10:20 Dose: Not Given Vancomycin/Sodium Chloride (Vancocin) 1 gm in 200 mls @ 133 mls/hr IVPB Q12H [facility] Stop: 10/05/16 18:01 Last Admin: 10/04/16 05:54 Dose: 133 mls/hr Cefepime HCl (Maxipime Iv 1 Gm Premix) 1 gm in 50 mls @ 100 mls/hr IVPB Q12H [facility] Last Admin: 10/04/16 05:08 Dose: 100 mls/hr - Labs Labs: 10/04/16 08:24 10/04/16 08:24 - Constitutional Appears: Non-toxic, Chronically Ill - Head Exam Head Exam: NORMOCEPHALIC - Eye Exam Eye Exam: PERRL. absent: Scleral icterus - ENT Exam ENT Exam: Mucous Membranes Dry, Normal External Ear Exam - Neck Exam Neck Exam: absent: Lymphadenopathy - Respiratory Exam Respiratory Exam: Decreased Breath Sounds, Clear to Ausculation Bilateral - Cardiovascular Exam Cardiovascular Exam: REGULAR RHYTHM - GI/Abdominal Exam GI & Abdominal Exam: Distended, Soft Assessment and Plan (1) Abscess of left leg Status: Acute (2) Cellulitis Status: Acute
[2016-10-05] MEDS: Cefepime IV 1 gm in Dextrose 1 GM/50 ML BAG IVPB SCH (05:10)
[2016-10-05] MEDS: Vancomycin 1 gm/NS 200 ml 1 GM/200 ML BAG IVPB SCH (05:11)
[2016-10-05 07:41] LABS: ALBUMIN 3.8 g/dL (3.5-5.0)
[2016-10-05 07:44] LABS: GFR AFRICAN-AMERICAN > 60; GFR NON-AFRICAN AMERICAN > 60
[2016-10-05 07:45] LABS: ALT/SGPT 33 U/L (9-52); AST/SGOT 24 U/L (14-36); BLOOD UREA NITROGEN 16 mg/dL (7-17); CALCIUM 9.6 mg/dl (8.6-10.4); MAGNESIUM 2.1 mg/dL (1.6-2.3)
[2016-10-05 08:20] LABS: EOS # 0.2 K/uL (0.0-0.7); EOS % 5.5 % (0.0-4.0); LYMPH # 0.9 K/uL (1.0-4.3); LYMPH % 20.2 % (20.0-40.0); MEAN CELL VOLUME 86.4 fL (81.0-99.0); MEAN CORPUSCULAR HEMOGLOBIN 28.3 pg (27.0-31.0); MEAN CORPUSCULAR HGB CONC 32.8 g/dL (33.0-37.0); MEAN PLATELET VOLUME 7.4 fL (7.2-11.7); MONO # 0.4 K/uL (0.0-0.8); NEUT # 2.8 K/uL (1.8-7.0); NEUT % 64.3 % (50.0-75.0); NRBC % 0.1 % (0.0-2.0); RBC 4.59 Mil/uL (3.80-5.20); RED CELL DISTRIBUTION WIDTH 14.1 % (11.5-14.5); WHITE BLOOD COUNT 4.3 K/uL (4.8-10.8)
[2016-10-05 08:41] VITALS: BP 121/75; PULSE 90; TEMP 97.8; O2SAT 98
[2016-10-05] MEDS: Collagenase 250 Units/gm Ointment(30 gm) TOP SCH (09:41)
--- NOTE | 2016-10-05 15:18 | CP.PCM.DIS ---
Provider - Provider Date of Admission: 09/30/16 14:13 Attending physician: Juanpablo Brooks Jr, MD Consults: Dr. Brooks Time Spent in preparation of Discharge (in minutes): 45 Diagnosis - Discharge Diagnosis (1) Cellulitis Status: Acute Comment: see summary for details. Hospital Course - Lab Results Lab Results: Micro Results 09/30/16 22:10 Blood-Venous Blood Culture - Preliminary NO GROWTH AFTER 4 DAYS 09/30/16 17:59 Blood-Venous Blood Culture - Preliminary NO GROWTH AFTER 4 DAYS 09/30/16 14:30 Abscess - Leg-Left Gram Stain - Final 09/30/16 14:30 Abscess - Leg-Left Wound Culture - Final Pseudomonas Aeruginosa Enterococcus Faecalis Most Recent Lab Values WBC 4.3 K/uL (4.8-10.8) L 10/05/16 07:11 RBC 4.59 Mil/uL (3.80-5.20) 10/05/16 07:11 Hgb 13.0 g/dL (11.0-16.0) 10/05/16 07:11 Hct 39.7 % (34.0-47.0) 10/05/16 07:11 MCV 86.4 fL (81.0-99.0) 10/05/16 07:11 MCH 28.3 pg (27.0-31.0) 10/05/16 07:11 MCHC 32.8 g/dL (33.0-37.0) L 10/05/16 07:11 RDW 14.1 % (11.5-14.5) 10/05/16 07:11 Plt Count 306 K/uL (130-400) 10/05/16 07:11 MPV 7.4 fL (7.2-11.7) 10/05/16 07:11 Neut % (Auto) 64.3 % (50.0-75.0) 10/05/16 07:11 Lymph % (Auto) 20.2 % (20.0-40.0) 10/05/16 07:11 [place] % (Auto) 9.0 % (0.0-10.0) 10/05/16 07:11 Eos % (Auto) 5.5 % (0.0-4.0) H 10/05/16 07:11 Baso % (Auto) 1.0 % (0.0-2.0) 10/05/16 07:11 Neut # 2.8 K/uL (1.8-7.0) 10/05/16 07:11 Lymph # 0.9 K/uL (1.0-4.3) L 10/05/16 07:11 [place] # 0.4 K/uL (0.0-0.8) 10/05/16 07:11 Eos # 0.2 K/uL (0.0-0.7) 10/05/16 07:11 Baso # 0.0 K/uL (0.0-0.2) 10/05/16 07:11 Sodium 139 mmol/L (132-148) 10/05/16 07:11 Potassium 4.4 mmol/L (3.6-5.2) 10/05/16 07:11 Chloride 105 mmol/L (98-107) 10/05/16 07:11 Carbon Dioxide 23 mmol/L (22-30) 10/05/16 07:11 Anion Gap 15 (10-20) 10/05/16 07:11 BUN 16 mg/dL (7-17) 10/05/16 07:11 Creatinine 0.7 MG/DL (0.7-1.2) 10/05/16 07:11 Est GFR ( Amer) > 60 10/05/16 07:11 Est GFR (Non-Af Amer) > 60 10/05/16 07:11 Random Glucose 104 mg/dL (65-105) 10/05/16 07:11 Calcium 9.6 mg/dl (8.6-10.4) 10/05/16 07:11 Phosphorus 4.0 mg/dL (2.5-4.5) 10/05/16 07:11 Magnesium 2.1 mg/dL (1.6-2.3) 10/05/16 07:11 Total Bilirubin 0.6 mg/dL (0.2-1.3) 10/05/16 07:11 AST 24 U/L (14-36) 10/05/16 07:11 ALT 33 U/L (9-52) 10/05/16 07:11 Alkaline Phosphatase 83 U/L (38-126) 10/05/16 07:11 Total Protein 7.6 g/dL (6.3-8.3) 10/05/16 07:11 Albumin 3.8 g/dL (3.5-5.0) 10/05/16 07:11 Globulin 3.9 gm/dL (2.2-3.9) 10/05/16 07:11 Albumin/Globulin Ratio 1.0 (1.0-2.1) 10/05/16 07:11 Urine Color Yellow (YELLOW) 09/30/16 22:59 Urine Clarity Hazy (Clear) 09/30/16 22:59 Urine pH 5.0 (5.0-8.0) 09/30/16 22:59 Ur Specific [place] 1.025 (1.003-1.030) 09/30/16 22:59 Urine Protein Negative mg/dL (NEGATIVE) 09/30/16 22:59 Urine Glucose (UA) Normal mg/dL (Normal) 09/30/16 22:59 Urine Ketones Negative mg/dL (NEGATIVE) 09/30/16 22:59 Urine Blood Negative (NEGATIVE) 09/30/16 22:59 Urine Nitrate Negative (NEGATIVE) 09/30/16 22:59 Urine Bilirubin Negative (NEGATIVE) 09/30/16 22:59 Urine Urobilinogen Normal mg/dL (0.2-1.0) 09/30/16 22:59 Ur Leukocyte Esterase Negative Kim/uL (Negative) 09/30/16 22:59 Urine WBC (Auto) 4 /hpf (0-5) 09/30/16 22:59 Urine RBC (Auto) 1 /hpf (0-3) 09/30/16 22:59 Ur Squamous Epith Cells 4 /hpf (0-5) 09/30/16 22:59 Ur Transition Epith Cell < 1 /hpf (0-3) 09/30/16 22:59 Urine Bacteria Rare (<OCC) 09/30/16 22:59 Vancomycin Trough 10.1 ug/mL (5.0-10.0) H 10/02/16 03:56 - Hospital Course Hospital Course: "CC: leg abscess HPI: 46 yo female with no PMHx presents s/p excision of varicose veins of right and left medial thighs performed in July and August of this year. Patient is unsure of the specific dates but states that her surgery was performed by Dr. Dinero. She visited the ED on [place] 2, 3 and 4 for dressing changes, packing removal and redressing with minimal complaints. Patient states that her left medial dressings have been soaked with blood over the past few days. She complains of erythema, blood and purulent appearing discharge from the left wound site. Patient went to visit Dr. Dinero this morning for continued followup; whereupon he advised her to go to the ED for IV antibiotics since she was not responding to oral antibiotics. At this time patient is irritated about the ordeal because she thought that the wounds would have healed by now, and yet they have not. She admits to ambulating regularly on a daily basis. She admits that her appetite has decreased since being on antibiotics resulting in the loss of approximately 5 pounds. She denies subjective fevers or chills, nausea, vomiting, diarrhea, constipation, chest pain, palpitations or paresthesias at this time." Patient admitted to the hospital and received Vanc 1 gm Q12 and Zosyn q6. Left wound came back positive for Gram neg rods, Enterococcus Faecalis, Pseudomonas [place]in[place]. Dr. Arroyo ([place]) was consulted for antibiotic management recommends to continue Vanco and Zosyn. Patient's left wound packed with curlex milked in Santyl. Patient feeling much less pain. Patient completed 6 days of IV antibiotics. Patient cleared for discharge as per Dr. Brooks. Patient to take oral Doxycycline 100 mg BID for 7 days and continue cleaning wounds and packing with curlex and santyl. This is a summary of the patient's hospital course. Please see chart for full details. Discharge Exam - Head Exam Head Exam: ATRAUMATIC, NORMAL INSPECTION, NORMOCEPHALIC - Eye Exam Eye Exam: Conjunctival injection - ENT Exam ENT Exam: Mucous Membranes Moist - Neck Exam Neck exam: Full Rom - Respiratory Exam Respiratory Exam: Clear to PA & Lateral, NORMAL BREATHING PATTERN, UNREMARKABLE. absent: Wheezes, Respiratory Distress - Cardiovascular Exam Cardiovascular Exam: REGULAR RHYTHM, RRR. absent: Gallop, Systolic Murmur - GI/Abdominal Exam GI & Abdominal Exam: Normal Bowel Sounds, Unremarkable. absent: Diminished Bowel Sounds - Extremities Exam Additional comments: left wound healing well, dressing clean dry and intact right wounds healing, less erythema and edema - Back Exam Back exam: NORMAL INSPECTION. absent: rash noted - Neurological Exam Neurological exam: Alert, Oriented x3 - Psychiatric Exam Psychiatric exam: Normal Affect, Normal Mood - Skin Skin Exam: Normal Color, Warm Additional comments: wounds healing Discharge Plan - Discharge Medications Prescriptions: Collagenase [Santyl] 90 gm EXT BID #1 tube Doxycycline Hyclate 100 mg PO BID #14 capsule - Follow Up Plan Condition: STABLE Disposition: HOME/ ROUTINE Instructions: Doxycycline (By mouth), Collagenase (On the skin), Cellulitis (DC ), Regular Diet (DC), Abscess (GEN) Additional Instructions: Patient cleared for discharge as per Dr. Brooks. Patient to follow up with [facility] and Dr. Brooks within one week of discharge. Patient to start taking Doxycycline 100 mg twice a day for 7 days patient to continue using Santyl on her wounds. She should change her dressing once a day cleaning it with normal saline and putting santyl on the curlex to use as packing. Patient should clean wounds on right leg with normal saline and apply santyl cream once per day. If symptoms return or worsen patient should Immediately return to the Emergency Room. Instructions explained to patient who agrees. Referrals: [facility] [Provider Group] Juanpablo Brooks Jr., MD [Medical Doctor] -
== END 2016-10-05 15:30 | disposition home or self-care (01) | DRG 418 ==
LOC: C.ER 12:23 → C.9E 14:13 → C.3T 17:54
PROVIDERS: ADMIT Internal Medicine; ATTEND Internal Medicine
DX: T81.4XXA Infection following a procedure, initial encounter (principal); L03.116 Cellulitis of left lower limb; L02.416 Cutaneous abscess of left lower limb; B96.5 Pseudomonas (aeruginosa) (mallei) (pseudomallei) as the cause of diseases classified elsewhere; B95.2 Enterococcus as the cause of diseases classified elsewhere; B96.89 Other specified bacterial agents as the cause of diseases classified elsewhere; I10 Essential (primary) hypertension; Z77.22 Contact with and (suspected) exposure to environmental tobacco smoke (acute) (chronic); Z90.49 Acquired absence of other specified parts of digestive tract